=== PATIENT | male | born 1945 | race Caucasian/White ===

== ENCOUNTER 2017-02-19 21:59 | Observation (INO) ==
--- NOTE | 2017-02-19 22:23 | Emergency Department Note ---
Disposition Clinical Impression: Atrial fibrillation with rapid ventricular response Disposition: Admitted As Inpatient Condition: Good General Adult HPI - General Chief complaint: ED Arrhythmia/Palpitations Stated complaint: states is in afib Time Seen by Provider: 02/19/17 22:07 Source: patient Limitations: no limitations - History of Present Illness Pain Scale: 4 - Related Data Previous Rx's Medication Instructions Recorded Cyclobenzaprine [Flexeril] 10 mg PO TID #12 tablet 01/19/16 Hydrocodone/Acetaminophen [[place] 1 tab PO Q6H PRN #20 tab 01/19/16 5-325 Tablet] Allergies Allergy/AdvReac Type Severity Reaction Status Date / Time sedation AdvReac Nausea Uncoded 02/19/17 22:03 Past Medical History - Past Medical History Medical history: Reports: atrial fibrillation, COPD, hypertension Psychiatric history: Reports: no psych history - Social History Smoking Status: Never smoker Alcohol use: Reports: rarely Drug use: Reports: none Physical Exam - General Limitations: no limitations General appearance: alert Course Vital Signs Temperature 98.2 F 02/19/17 22:04 Pulse Rate 95 02/19/17 22:04 Respiratory Rate 20 02/19/17 22:04 Blood Pressure 187/90 02/19/17 22:04 O2 Sat by Pulse Oximetry 97 02/19/17 22:04 Temperature 98.3 F 02/20/17 01:40 Pulse Rate 103 02/20/17 01:40 Respiratory Rate 16 02/20/17 01:40 Blood Pressure 146/83 02/20/17 01:40 O2 Sat by Pulse Oximetry 95 02/20/17 01:40 Oxygen Delivery Oxygen Delivery Room Air Medical Decision Making - Lab Data Result diagrams: 02/20/17 04:44 02/20/17 04:44 Lab Results 02/19/17 02/19/17 02/19/17 Range/Units 22:54 22:54 22:54 WBC 8.2 (4.3-11.1) K/mcL RBC 4.80 (4.19-5.50) M/mcL Hgb 14.1 (12.9-16.9) g/dL Hct 42.7 (37.5-50.1) % MCV 89.0 (83.0-100.0) fL MCH 29.4 (28.0-33.3) pg MCHC 33.0 (31.6-35.5) g/dL RDW 13.7 (11.5-14.5) % Plt Count 222 (140-400) K/mcL MPV 10.3 (9.4-12.4) fL Immature Gran % 0.2 (0-4) % Seg Neutrophils % 67.7 % Lymphocytes % 19.0 % Monocytes % 9.9 % Eosinophils % 2.3 % Basophils % 0.9 % Neutrophils # 5.5 (1.6-8.9) K/mcL Lymphocytes # 1.6 (0.6-4.6) K/mcL Monocytes # 0.8 (0.0-1.3) K/mcL Eosinophils # 0.2 (0.0-0.6) K/mcL Basophils # 0.1 (0.0-0.2) K/mcL Sodium 140 (136-145) mEq/L Potassium 4.2 (3.5-4.5) mEq/L Chloride 106 (98-109) mEq/L Carbon Dioxide 25 (19-29) mEq/L BUN 25 (8-26) mg/dL Creatinine 1.45 H (0.72-1.25) mg/dL Est GFR ( Amer) 58 L (> 60) Est GFR (Non-Af Amer) 48 L (> 60) BUN/Creatinine Ratio 17 (6-26) Glucose 103 H (70-99) mg/dL Calculated Osmolality 295 (280-300) Calcium 9.2 (8.6-10.8) mg/dL Magnesium 2.0 (1.6-2.6) mg/dL Troponin I 0.01 (0-0.03) ng/mL Attestation Statement - Attestation Attestation: I examined this patient and my medical decision-making was reviewed with the [employer]ER/PA/Advanced Practice Nurse/Resident Physician. I agree with the documented findings, disposition and treatment plan as described except to the extent set forth below. Voon-by-gurr time provided Patient presents complaining of palpitations. History of intermittent atrial fibrillation. Symptoms for the past 10 hours. ECG reviewed by me. Patient evaluated in conjunction with the resident physician
[2017-02-19 23:01] LABS: Basophils # 0.1 K/mcL (0.0-0.2); Basophils % 0.9 %; Eosinophils # 0.2 K/mcL (0.0-0.6); Eosinophils % 2.3 %; Hematocrit 42.7 % (37.5-50.1); Hemoglobin 14.1 g/dL (12.9-16.9); Immature Granulocytes % 0.2 % (0-4); Lymphocytes # 1.6 K/mcL (0.6-4.6); Mean Corpuscular Hemoglobin 29.4 pg (28.0-33.3); Mean Platelet Volume 10.3 fL (9.4-12.4); Monocytes # 0.8 K/mcL (0.0-1.3); Monocytes % 9.9 %; Neutrophils # 5.5 K/mcL (1.6-8.9); Platelet Count 222 K/mcL (140-400); Red Cell Distribution Width 13.7 % (11.5-14.5); Segmented Neutrophils % 67.7 %
[2017-02-19 23:15] LABS: Calcium 9.2 mg/dL (8.6-10.8); Potassium 4.2 mEq/L (3.5-4.5)
[2017-02-19] MEDS ORDERED: 0.9 % Sodium Chloride 1,000 ML IVC ONE (23:39)
--- NOTE | 2017-02-19 23:45 | Emergency Department Note ---
Disposition Clinical Impression: Atrial fibrillation with rapid ventricular response Disposition: Admitted As Inpatient Condition: Good Referrals: Unassigned,Provider [Non-Partnered Physician] - Forms: ED Satisfaction Letter Arrhythmia/Palpitations HPI - General Chief Complaint: ED Arrhythmia/Palpitations Stated Complaint: states is in afib Time Seen by Provider: 02/19/17 22:07 Source: patient Limitations: no limitations Nursing Notes Reviewed: Yes Vital Signs Reviewed: Yes - History of Present Illness HPI Narrative: 71-year-old male presents to the emergency department with the chief complaint of atrial fibrillation. He reports a history of paroxysmal atrial fibrillation and he takes Xarelto and Sotolol he was diagnosed in 2012 and the last time he was in A. fib was 2014. He reports a fluttering sensation of the heart but not any pressure, pain and no associated nausea, vomiting or diaphoresis. He states he feels generally weak which occurs when he goes into A. fib. He denies any new lower extremity swelling. He denies any calf pain, history of DVT or PE. He denies any shortness of breath, lightheadedness or syncope. He denies any abdominal pain. - Related Data Previous Rx's Medication Instructions Recorded Cyclobenzaprine [Flexeril] 10 mg PO TID #12 tablet 01/19/16 Hydrocodone/Acetaminophen [[place] 1 tab PO Q6H PRN #20 tab 01/19/16 5-325 Tablet] Allergies Allergy/AdvReac Type Severity Reaction Status Date / Time sedation AdvReac Nausea Uncoded 02/19/17 22:03 All systems ED: reviewed and negative except as stated. Cardiovascular: Reports: palpitations. Denies: chest pain, dyspnea on exertion Respiratory: Denies: cough, dyspnea Gastrointestinal: Denies: abdominal pain, nausea, vomiting Musculoskeletal: Denies: back pain Neurological: Denies: headache, weakness, numbness Past Medical History - Past Medical History Medical history: Reports: atrial fibrillation, COPD, hypertension Psychiatric history: Reports: no psych history - Social History Smoking Status: Never smoker Alcohol use: Reports: rarely Drug use: Reports: none Physical Exam General: Appears well, alert and oriented x 3 Cardiovascular: Irregular but rate controlled, S1, S2. No murmurs, rubs or gallops. Respiratory: Breath sounds clear bilaterally. No wheezing, rales or rhonchi. No resp distress Abdomen: Soft, nontender. No guarding, rebound or rigidity. Eyes: conjunctiva clear HENT: No oral mucosal lesions. Moist mucous membranes Neuro: AAOx3, no motor or sensory deficits Musculoskeletal: No joint tenderness or swelling. BL LE non pitting edema involving the ankles BL, no asymmetry, tenderness or signs of DVT Skin: No lesions. No diaphoresis. Normal turgor. Normal color Psych: Appropriate - General Limitations: no limitations General appearance: alert Course Course Narrative: Presents with palpitations with history of A. fib. Initial EKG shows A. fib with a rate in the 90s. While in the emergency department his heart rate climbed into the 120s while at rest. We gave a liter of fluid and his heart rates down to about 115. Patient is early on Sotolol and I do not feel that adding a calcium channel j luis or BB at this time is necessary and patient will be stable until evaluated by the roof designer where he can be better evaluated and treated. I discussed this with the on-call hospitalist who accepts for admission Vital Signs Temperature 98.2 F 02/19/17 22:04 Pulse Rate 95 02/19/17 22:04 Respiratory Rate 20 02/19/17 22:04 Blood Pressure 187/90 02/19/17 22:04 O2 Sat by Pulse Oximetry 97 02/19/17 22:04 Temperature 98.2 F 02/19/17 22:04 Pulse Rate 114 02/20/17 00:16 Respiratory Rate 18 02/20/17 00:16 Blood Pressure 124/92 02/20/17 00:16 O2 Sat by Pulse Oximetry 94 02/20/17 00:16 Oxygen Delivery Oxygen Delivery Room Air Arrhythmia/Palpitations - Lab Data Result diagrams: 02/19/17 22:54 02/19/17 22:54 Lab Results 02/19/17 02/19/17 02/19/17 Range/Units 22:54 22:54 22:54 WBC 8.2 (4.3-11.1) K/mcL RBC 4.80 (4.19-5.50) M/mcL Hgb 14.1 (12.9-16.9) g/dL Hct 42.7 (37.5-50.1) % MCV 89.0 (83.0-100.0) fL MCH 29.4 (28.0-33.3) pg MCHC 33.0 (31.6-35.5) g/dL RDW 13.7 (11.5-14.5) % Plt Count 222 (140-400) K/mcL MPV 10.3 (9.4-12.4) fL Immature Gran % 0.2 (0-4) % Seg Neutrophils % 67.7 % Lymphocytes % 19.0 % Monocytes % 9.9 % Eosinophils % 2.3 % Basophils % 0.9 % Neutrophils # 5.5 (1.6-8.9) K/mcL Lymphocytes # 1.6 (0.6-4.6) K/mcL Monocytes # 0.8 (0.0-1.3) K/mcL Eosinophils # 0.2 (0.0-0.6) K/mcL Basophils # 0.1 (0.0-0.2) K/mcL Sodium 140 (136-145) mEq/L Potassium 4.2 (3.5-4.5) mEq/L Chloride 106 (98-109) mEq/L Carbon Dioxide 25 (19-29) mEq/L BUN 25 (8-26) mg/dL Creatinine 1.45 H (0.72-1.25) mg/dL Est GFR ( Amer) 58 L (> 60) Est GFR (Non-Af Amer) 48 L (> 60) BUN/Creatinine Ratio 17 (6-26) Glucose 103 H (70-99) mg/dL Calculated Osmolality 295 (280-300) Calcium 9.2 (8.6-10.8) mg/dL Magnesium 2.0 (1.6-2.6) mg/dL Troponin I 0.01 (0-0.03) ng/mL - EKG Data EKG results narrative: A fib with a rate of 99BPM. No ST elevation or depression. No acute ischemic changes.
[2017-02-20] MEDS ORDERED: Naloxone 0.4 MG/ML INJ IVP PRN (03:06)
[2017-02-20] MEDS ORDERED: Acetaminophen 325 MG TABLET PO PRN (03:06)
--- NOTE | 2017-02-20 04:24 | Internal Med History&Physical ---
Date of Encounter: 02/20/17 Time of Encounter: 02:45 Assessment and Plan (1) Atrial fibrillation with rapid ventricular response Current visit: Yes Status: Acute Patient has had ablation in the past and two episodes of DCCV in 2012 and 2014, since when he has been in sinus rhythm, per him. Noted to be on Sotalol and Xarelto for anticoagulation at home, will continue for now. His HR was noted to be elevated to 120s-130s in the ER, he received IV fluids after which his HR has been better controlled. Will use IV Cardizem as needed. Telemetry monitoring. Check 2D Echocardiogram. Cardiology consult for possible DCCV. No Pneumonia, check urine dipstick. (2) CKD (chronic kidney disease) Current visit: Yes Status: Chronic serum creatinine noted to be at baseline; avoid nephrotoxic agents. Outpatient Nephrology f/up. Qualifiers: Chronic kidney disease stage: stage 3 (moderate) Qualified Code(s): N18.3 - Chronic kidney disease, stage 3 (moderate) (3) SUMEET (obstructive sleep apnea) Current visit: Yes Status: Chronic continue nocturnal CPAP. Internal Medicine - H&P: HPI Chief complaint: Palpitations Admitted From: Emergency Dept Plans for Post Hospital Care: Home History of present illness: Mr. Sarkra is a 71 year old male with h/o- atrial fibrillation, s/p ablation and two episodes of cardioversion, presents with c/o- sudden onset of palpitations that started this afternoon. He describes a feeling of butterflies in his chest , associated with generalized weakness, myalgias, lethargy, like Flu. Denies dizziness, syncope, chest pain, dyspnea. He does have occasional leg swelling for which he takes Lasix as needed. He has not had these symptoms since his last cardioversion in 2014, and is concerned about recurrence of atrial fibrillation. No urinary symptoms, cough, fever, abdominal pain, nausea/ vomiting. Past Med Surg Social Fam HX - Past Medical History Medical history: atrial fibrillation, CHF, hyperlipidemia, renal disease Psychiatric history: no psych history - Past Surgical History Surgical History: cholecystectomy - Social History Smoking Status: Never smoker Alcohol use: rarely Drug use: none Occupational status: retired Current living situation: Home - Independent Activity Level: Independent ambulation Recent Out of Country Travel Within the Last 8 Weeks: No Exposure or Possible Exposure to Illness During Travel: No - Family History Mother Living Status: Cause of : Lung CA Hx Family Cardiac Disorders: Yes ([place]) Hx Family Cancer: Yes (Lung) Hx Family Neuromuscular Disorders: Yes (RA) Hx Family Neurologic Disorders: Yes (Epilepsy) Father Living Status: Age at : 79 Cause of : ID Hx Family Cardiac Disorders: Yes Internal Medicine - H&P: Meds Cyclobenzaprine [Flexeril] 10 mg PO TID #12 tablet 01/19/16 [Rx] Hydrocodone/Acetaminophen [[place] 5-325 Tablet] 1 tab PO Q6H PRN #20 tab [Rx] Allergies sedation Adverse Reaction (Uncoded 02/19/17 22:03) Nausea All Systems PM: A 10-system review of systems was performed and is negative for pertinent findings except as documented above in the HPI. - Constitutional Constitutional: fatigue, lethargy, malaise, weakness - EENT Eyes: no change in vision, no discharge, no pain, no photophobia Ears: no ear discharge, no ear pain, no tinnitus Nose, mouth and throat: no dysphagia, no nasal discharge, no neck pain, no sore throat - Cardiovascular Cardiovascular ROS IM: palpitations - Respiratory Respiratory: no cough, no dyspnea, no wheezing, no excessive phlegm production - Gastrointestinal Gastrointestinal: no abdominal pain, no diarrhea, no hematemesis, no hematochezia, no melena, no nausea, no vomiting - Musculoskeletal Musculoskeletal ROS IM: no numbness, no tingling - Integumentary Integumentary IM: no rash, no unusual bruising - Neurological Neurological ROS: no confusion, no convulsions, no focal weakness, no numbness, no tingling, no tremor(s) - Hematologic/Lymphatic Hematologic/Lymphatic: no easy bruising - Constitutional Vitals: Temp Pulse Resp BP Pulse Ox 98.3 F 103 16 146/83 95 02/20/17 01:40 02/20/17 01:40 02/20/17 01:40 02/20/17 01:40 02/20/17 01:40 General appearance: Present: A&O X 3, obese, answers questions appropriately - Respiratory Respiratory exam: Present: CTAB. Absent: accessory muscle use, rales, rhonchi, wheezes - Cardiovascular Cardiovascular exam: Present: irregular rhythm, +S1, +S2. Absent: diastolic murmur, gallop, rubs, systolic murmur - GI/Abdominal GI/Abdominal exam: Present: normal bowel sounds, soft (obese), no peritoneal signs. Absent: distended, tenderness - Extremities Exam Extremities exam: Present: full ROM, pedal edema (1+ pitting pedal edema B/L), warm, radial pulses palpable and symetrical. Absent: calf tenderness, cyanotic - Neurological Exam Neurological exam: Present: CN II-XII intact, oriented X3, no focal deficits. Absent: pronater drift, facial droop, speech deficit - Skin Skin exam: Present: dry, intact Internal Med - H&P Results - Labs CBC & Chem 7: 02/19/17 22:54 02/19/17 22:54 - EKG Data -: EKG Interpreted by Myself (atrial fibrillation at 96bpm)
[2017-02-20 05:53] LABS: Basophils # 0.1 K/mcL (0.0-0.2); Basophils % 0.8 %; Eosinophils # 0.2 K/mcL (0.0-0.6); Eosinophils % 2.3 %; Hematocrit 39.9 % (37.5-50.1); Hemoglobin 12.9 g/dL (12.9-16.9); Immature Granulocytes % 0.3 % (0-4); Lymphocytes # 1.4 K/mcL (0.6-4.6); Lymphocytes % 21.6 %; Mean Corpuscular HGB Conc 32.3 g/dL (31.6-35.5); Mean Corpuscular Hemoglobin 28.5 pg (28.0-33.3); Mean Corpuscular Volume 88.3 fL (83.0-100.0); Mean Platelet Volume 10.1 fL (9.4-12.4); Monocytes # 0.7 K/mcL (0.0-1.3); Monocytes % 10.8 %; Neutrophils # 4.2 K/mcL (1.6-8.9); Platelet Count 203 K/mcL (140-400); Red Blood Count 4.52 M/mcL (4.19-5.50); Red Cell Distribution Width 13.7 % (11.5-14.5); Segmented Neutrophils % 64.2 %
[2017-02-20 06:13] LABS: BUN/Creatinine Ratio 17 (6-26); Blood Urea Nitrogen 21 mg/dL (8-26); Calcium 8.5 mg/dL (8.6-10.8); Carbon Dioxide 23 mEq/L (19-29); Chloride 109 mEq/L (98-109); Glucose 89 mg/dL (70-99); Magnesium 2.1 mg/dL (1.6-2.6); Osmolality,Calculated 292 (280-300); Potassium 4.1 mEq/L (3.5-4.5); Sodium 140 mEq/L (136-145); eGFR For African Americans > 60 (> 60); eGFR For Non-African Americans 58 (> 60)
--- NOTE | 2017-02-20 11:13 | Cardiology Consult Note ---
Date of Encounter: 02/20/17 Time of Encounter: 11:09 Assessment and Plan (1) Atrial fibrillation with rapid ventricular response Current Visit: Yes Status: Acute Known hx of paroxysmal A-Fib/Flutter s/p ablation and two cardioversions in 2012 and 2014. Per pt, has maintained SR until yesterday when he felt he was out of rhythm with symptoms of fatigue and palpitations. K 4.1, Mag 2.1. Check TSH. Check echo. Last TTE 04/2013 EF 50-55%. BARBARA at that time EF 40-45%. Currently on Sotalol 80mg BID with no missed doses. Anticoagulated on Xarelto, missed dose yesterday evening on admission. Stage III CKD, but creatinine clearance remains >100. Will consult EP for further recommendations, anticipate increase of Sotalol to 120mg [id number] with daily EKGs. EKG on admission QTc 427ms. NPO after midnight for possible BARBARA/DCCV in AM. BARBARA warranted since he missed dose of Xarelto yesterday evening. Check echo to evaluate structure and function. (2) CKD (chronic kidney disease) Current Visit: Yes Status: Chronic Creatinine currently improved/at baseline. Creatinine Clearance remains >100, okay to continue and increase Sotalol. Monitor BMPs. Qualifiers: Chronic kidney disease stage: stage 3 (moderate) Qualified Code(s): N18.3 - Chronic kidney disease, stage 3 (moderate) (3) CAD (coronary artery disease) Current Visit: Yes Status: Acute LHC in 2012 showed moderate left main disease (40-50%). Mild CAD elsewhere. Pt previously biked without anginal symptoms. Reports not being as active recently, but denies chest pain or dyspnea. Check echo. 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 Add Plavix given left main disease. Plavix, BB, Statin. No ASA since he is on Xarelto and Plavix. Qualifiers: Coronary Disease-Associated Artery/Lesion type: [place] artery [place] vs. transplanted heart: [place] heart Associated angina: without angina Qualified Code(s): I25.10 - Atherosclerotic heart disease of [place] coronary artery without angina pectoris (4) SUMEET (obstructive sleep apnea) Current Visit: Yes Status: Chronic Continue CPAP. Discussion w patient/family: The assessment and plan as outlined above was discussed with the patient and/or family members who expressed understanding and agreement. All questions were answered. Thank you for involving us in the care of your patient. Please call with any questions. I will discuss all the above with Dr. Davidson and make changes as necessary. History of Present Illness Consult date: 02/20/17 Requesting physician: Smitha Caro Consult reason: A-Fib Chief complaint: fatigue, palpitations History of present illness: Mr. Sarkar is a 71 year old male with PMH of CAD, NICMP that since recovered, paroxysmal atrial fibrillation/flutter, s/p ablation and two cardioversions in 2012 and 2014 that presented with c/o sudden onset of palpitations that started yesterday afternoon. He describes a feeling of butterflies in his chest, associated with generalized weakness. He denies chest pain. He reports occasional lower extremity edema which he takes PRN Lasix for. 24 hour tele AVG HR 104, A-Fib. Prior CV testing: Echo 04/2013 EF 50-55%. BARBARA 04/2013 EF 40-45%. LHC 01/31/13 Moderate (40-50%) Left main disease. Mild disease otherwise. Past Med Surg Social Fam HX - Past Medical History Medical history: atrial fibrillation, COPD, coronary artery disease, hypertension Psychiatric history: no psych history - Past Surgical History Surgical History: cholecystectomy - Social History Smoking Status: Never smoker Alcohol use: rarely Drug use: none - Family History Mother Living Status: Cause of : Lung CA Hx Family Cardiac Disorders: Yes ([place]) Hx Family Cancer: Yes (Lung) Hx Family Neuromuscular Disorders: Yes (RA) Hx Family Neurologic Disorders: Yes (Epilepsy) Father Living Status: Age at : 79 Cause of : MT Hx Family Cardiac Disorders: Yes Medications and Allergies Atorvastatin [Lipitor] 10 mg PO HS 02/20/17 [History] Rivaroxaban [Xarelto] 10 mg PO 1700 02/20/17 [History] Sotalol [Betapace] 80 mg PO Q12HR 02/20/17 [History] Allergies sedation Adverse Reaction (Uncoded 02/19/17 22:03) Nausea All Systems Review: A 10-system review of systems was performed and is negative for pertinent findings except as documented above in the HPI. - Constitutional Constitutional: fatigue - Cardiovascular Cardiovascular: as per HPI, irregular heart rhythm, leg edema, palpitations Physical Examination Vital Signs, Last 4 Hours Temp Pulse Resp BP Pulse Ox 02/20/17 11:05 98.0 F 114 17 110/75 97 Vital Signs Temp Pulse Resp BP Pulse Ox 02/20/17 11:05 98.0 F 114 17 110/75 97 02/20/17 07:02 98.1 F 113 18 120/88 96 02/20/17 01:40 98.3 F 103 16 146/83 95 02/20/17 01:14 18 118/82 02/20/17 01:07 115 18 118/82 96 02/20/17 00:16 114 18 124/92 94 02/19/17 23:21 101 18 137/88 96 02/19/17 22:51 101 18 144/99 96 02/19/17 22:36 106 18 193/112 95 02/19/17 22:04 98.2 F 95 20 187/90 97 Intake and Output 02/19/17 02/20/17 02/20/17 23:59 07:59 15:59 Intake Total 1000 / 1000 360 / 360 Balance 1000 / 1000 360 / 360 Intake: IV Fluids 1000 / 1000 0.9 % Sodium Chloride 1, 1000 / 1000 000 ML @ 3750 mls/hr IVC .Q16M ONE Rx#:[id number] Oral 360 / 360 Other: Meal Breakfast Percent of Meal Consumed 100% Weight 145.15 kg 148.778 kg Patient Weight 02/20/17 23:59 Weight 148.778 kg General: Conversant, No Apparent Distress HEENT: Atraumatic, Normocephaly, Mucus Membranes Moist Neck: No JVD, Normal carotid pulses Cardiac: Other (irregularly irregular) Lungs: Normal Breath Sounds, No Wheeze, Rales, Rhonchi Neuro: Alert and responsive, No focal deficits noted Abdomen: Soft, Non-Tender Skin: No rashes noted on visualized skin Musculoskeletal: No Chest Wall Tenderness Extremities: No Clubbing, No Cyanosis, No Edema, Normal Pulses Results 02/20/17 04:44 02/20/17 04:44 Lab Results 02/20/17 02/20/17 04:44 04:44 WBC 6.5 Hgb 12.9 Hct 39.9 Plt Count 203 Sodium 140 Potassium 4.1 Chloride 109 Carbon Dioxide 23 BUN 21 Creatinine 1.24 Glucose 89 Calcium 8.5 L Magnesium 2.1 Short CBC 02/20/17 02/19/17 Range/Units 04:44 22:54 WBC 6.5 8.2 (4.3-11.1) K/mcL Hgb 12.9 14.1 (12.9-16.9) g/dL Hct 39.9 42.7 (37.5-50.1) % Plt Count 203 222 (140-400) K/mcL Neutrophils # 4.2 5.5 (1.6-8.9) K/mcL BMP 02/20/17 02/19/17 Range/Units 04:44 22:54 Sodium 140 140 (136-145) mEq/L Potassium 4.1 4.2 (3.5-4.5) mEq/L Chloride 109 106 (98-109) mEq/L Carbon Dioxide 23 25 (19-29) mEq/L BUN 21 25 (8-26) mg/dL Creatinine 1.24 1.45 H (0.72-1.25) mg/dL Glucose 89 103 H (70-99) mg/dL Calcium 8.5 L 9.2 (8.6-10.8) mg/dL Cardiac Enzymes 02/19/17 Range/Units 22:54 Troponin I 0.01 (0-0.03) ng/mL Impressions Chest X-Ray 02/19/17 22:38 IMPRESSION: No acute abnormality. D/ / Sagar Watkins MD / Sagar Watkins MD Interpreting Provider: Sagar Watkins MD Active Medications Acetaminophen (Tylenol) 650 mg PO Q6HR PRN PRN Reason: Mild Pain (1-3) Stop: 08/22/17 03:07 Clopidogrel Bisulfate (Plavix) 75 mg PO DAILY [facility] Stop: 08/22/17 11:16 Naloxone HCl (Narcan) 0.4 mg IVP Q2MIN PRN PRN Reason: Opioid Reversal Stop: 08/22/17 03:07 Omeprazole (Prilosec) 20 mg PO DAILY@0630 [facility] PRN Reason: Protocol Stop: 08/22/17 06:31 Last Admin: 02/20/17 06:00 Dose: Not Given Rivaroxaban (Xarelto) 20 mg PO 1700 [facility] Stop: 08/22/17 17:01 Sotalol HCl (Betapace) 40 mg PO ONCE ONE Stop: 02/20/17 11:07 Sotalol HCl (Betapace) 120 mg PO Q12HR [facility] Stop: 08/22/17 18:01 - Imaging and Cardiology Echo: report reviewed Cardiac cath: report reviewed - EKG Interpretation EKG results cardiology: personally reviewed, other (24 hour tele AVG HR 104, A- Fib.) Consult Discharge Plan - Plan Referrals: Gary Clifton DO [Primary Care Provider] - 03/02/17 9:30 am
[2017-02-20 11:21] LABS: Bilirubin,Urine Negative (Negative); Blood,Urine Negative (Negative); Clarity,Urine Clear (Clear); Color,Urine Yellow (Yellow); Glucose,Urine (UA) Normal (Normal); Ketones,Urine Negative (Negative); Leukocyte Esterase,Urine Negative (Negative); Nitrite,Urine Negative (Negative); Protein,Urine Negative (Neg-Trace); Specific Gravity,Urine 1.022 (1.010-1.025); Urobilinogen,Urine Normal (Normal)
--- NOTE | 2017-02-20 11:36 | Cardiology Consult Note ---
Date of Encounter: 02/20/17 Time of Encounter: 11:20 Assessment and Plan (1) Atrial fibrillation with rapid ventricular response Current Visit: Yes Status: Acute EP recommendations: Known hx of paroxysmal A-Fib/Flutter s/p ablation and two cardioversions in 2012 and 2014. ECG upon admission: AFib, HR 99 bpm, QT/QTc 371, 427 ms. Last TTE 04/2013 EF 50-55%. BARBARA at that time EF 40-45% Patient reports palpitations and fatigue that started yesterday evening, attributes to high level of stress at home/reports significant weight gain. Has been on sotalol 80 mg BID. Potassium & magnesium stable, TSH pending. TTE pending. Patient states he cannot confirm if he has been compliant with Xarelto in the past [address] Reynaldo Krueger, recommend increasing Sotalol to 120 mg BID; plan for BARBARA guided DCCV tomorrow if does not convert. NPO after MN. Obtain daily ECGs. Stage III CKD, but creatinine clearance remains >60 Discussion w patient/family: The assessment and plan as outlined above was discussed with the patient and/or family members who expressed understanding and agreement. All questions were answered. Thank you for involving us in the care of your patient. Please call with any questions. The patient was discussed and reviewed with Dr. Reynaldo Krueger. History of Present Illness Consult date: 02/20/17 Requesting physician: Angelo Mejia Consult reason: EP consult-AFib Chief complaint: Palpitations History of present illness: This document serves as an Electrophysiology Consult Note. Mr. Sarkar is a 71 year old male with PMH of CAD, recovered NICM, paroxysmal atrial fibrillation/flutter, s/p ablation and two cardioversions in 2012 and 2014 that presented to the ED with sudden onset of palpitations, fatigue that started yesterday afternoon. 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 Also reports significant weight gain due to "stress eating." He denies chest pain. He reports occasional lower extremity edema which he takes PRN Lasix for. 24 hour tele AVG HR 104, A-Fib. Prior CV testing: Echo 04/2013 EF 50-55%. BARBARA 04/2013 EF 40-45%. LHC 01/31/13 Moderate (40-50%) Left main disease. Mild disease otherwise. Past Med Surg Social Fam HX - Past Medical History Attestation: Yes The following information was validated with the patient. Source: patient Medical history: atrial fibrillation, COPD, coronary artery disease, hypertension Psychiatric history: no psych history - Past Surgical History Surgical History: cholecystectomy - Social History Smoking Status: Never smoker Alcohol use: rarely Drug use: none - Family History Mother Living Status: Cause of : Lung CA Hx Family Cardiac Disorders: Yes (PR) Hx Family Cancer: Yes (Lung) Hx Family Neuromuscular Disorders: Yes (RA) Hx Family Neurologic Disorders: Yes (Epilepsy) Father Living Status: Age at : 79 Cause of : PR Hx Family Cardiac Disorders: Yes Medications and Allergies Atorvastatin [Lipitor] 10 mg PO HS 02/20/17 [History] Rivaroxaban [Xarelto] 10 mg PO 1700 02/20/17 [History] Sotalol [Betapace] 80 mg PO Q12HR 02/20/17 [History] Allergies sedation Adverse Reaction (Uncoded 02/19/17 22:03) Nausea All Systems Review: A 10-system review of systems was performed and is negative for pertinent findings except as documented above in the HPI. - Cardiovascular Cardiovascular: as per HPI Physical Examination Vital Signs, Last 4 Hours Temp Pulse Resp BP Pulse Ox 02/20/17 11:05 98.0 F 114 17 110/75 97 General: Conversant, Other (obese) HEENT: Atraumatic, Normocephaly Cardiac: Other (irregularly irregular) Lungs: Normal Breath Sounds Neuro: Alert and responsive Abdomen: Soft Skin: No rashes noted on visualized skin Musculoskeletal: No Chest Wall Tenderness Extremities: No Edema, Normal Pulses Results 02/20/17 04:44 02/20/17 04:44 Lab Results 02/20/17 02/20/17 04:44 04:44 WBC 6.5 Hgb 12.9 Hct 39.9 Plt Count 203 Sodium 140 Potassium 4.1 Chloride 109 Carbon Dioxide 23 BUN 21 Creatinine 1.24 Glucose 89 Calcium 8.5 L Magnesium 2.1 Active Medications Acetaminophen (Tylenol) 650 mg PO Q6HR PRN PRN Reason: Mild Pain (1-3) Stop: 08/22/17 03:07 Clopidogrel Bisulfate (Plavix) 75 mg PO DAILY [facility] Stop: 08/22/17 11:16 Last Admin: 02/20/17 12:42 Dose: 75 mg Naloxone HCl (Narcan) 0.4 mg IVP Q2MIN PRN PRN Reason: Opioid Reversal Stop: 08/22/17 03:07 Omeprazole (Prilosec) 20 mg PO DAILY@0630 [facility] PRN Reason: Protocol Stop: 08/22/17 06:31 Last Admin: 02/20/17 06:00 Dose: Not Given Rivaroxaban (Xarelto) 20 mg PO 1700 [facility] Stop: 08/22/17 17:01 Sotalol HCl (Betapace) 120 mg PO Q12HR [facility] Stop: 08/22/17 18:01 - Imaging and Cardiology Echo: pending, report reviewed Cardiac cath: report reviewed Other Results: Tele review: avg OT=551, afib. - EKG Interpretation EKG results cardiology: personally reviewed Consult Discharge Plan - Plan Referrals: Gary Clifton DO [Primary Care Provider] - 03/02/17 9:30 am
--- NOTE | 2017-02-20 11:38 | ECHO - Doppler Report ---
Echocardiogram Name: Luisito Sarkar Date of Study: 02/20/2017 Date: 1945 Ht: 70.0 in Medical Record#: [id number] Age: 71 Wt: 328.0 lb Gender: Male BSA: 2.58 Order #: [id number] Location: [facility] Room #: 3B34 Reading Physician: Marlene Underwood DO Material Control Supervisor: Rylan Reynolds RN Ordering Physician: Ludy Caro MD Primary Physician: Valeriano Clifton DO Indications: Palpitations Impressions: LVEF 50%. Low normal LV systolic function. Indeterminate left ventricular diastolic function. Normal right ventricular size and function. Mild mitral regurgitation. No pulmonary hypertension. Left Ventricular Wall Motion: Rest Echo Findings All wall segments showed normal motion. Findings: Study Quality * Technically sub-optimal due to body habitus. ECG Findings * Atrial fibrillation. Left Ventricle * Indeterminate diastolic function. * Normal LV chamber size, wall thickness. * LVEF 50%. Left Atrium * Moderately dilated left atrium. Mitral Valve * Normal mitral valve structure. * No mitral stenosis. * Mild mitral regurgitation. Aortic Valve * No aortic regurgitation. * Trileaflet aortic valve. * Normal aortic valve structure. * No aortic stenosis. Tricuspid Valve * Tricuspid valve not well visualized. * Trace tricuspid regurgitation. * Estimated RA pressure is 3 mmHg. * Estimated RVSP is 33 mmHg. * No pulmonary hypertension. Pulmonic Valve * Pulmonic valve is not well visualized. * No pulmonic stenosis. * No pulmonic regurgitation. Pulmonary Artery * Pulmonary artery not well visualized. Right Ventricle * Normal right ventricular structure and function. Right Atrium * Normal right atrial size. Pericardium * There is no pericardial effusion present. Interatrial Septum * No evidence of PFO by color Doppler. IVC * Normal IVC dimensions and inspiratory collapse. Aorta * Normally sized aortic root. History Hypertension Hypercholesteremia Family History of CAD Congestive Heart Failure 04/08/2015 a Previous Echo was performed. Measurements: BP: 120/ 88 2D Normal Values RVIDd: 3.50 cm <2.7 cm IVSd: 1.20 cm 0.6 - 1.0 cm LVIDd: 4.60 cm 3.7 - 5.6 cm LVPWd: 1.20 cm 0.6 - 1.1 cm LVIDs: 3.40 cm 1.5 - 3.6 cm LA: 4.50 cm 2.0 - 4.0cm %FS: 26.10 cm >25 % LVOT Diam: 2.00 cm LA volume: 99 Mitral Valve Peak E:1.07 m/sec Peak E' Lat Tom:13.1 cm/s Peak E' Med Tom:7.9 cm/s E/E' Lat Ratio:8.2 E/E' Med Ratio:13.5 Tricuspid Valve TV Regurg Peak Grad: 30.00mmHg TV Regurg Peak Tom: 2.74m/sec Updated by Marlene Underwood on 02/20/2017 11:31:44 AM electronically signed on 02/20/2017 11:32:26 AM with status of Final Wall Motion [place]: 1=Normal, 2=Hypokinesis, 3=Akinesis, 4=Dyskinesis, 5=Aneurysmal, 6=Hyperkinetic, X=Not Visualized (Blank)=Missing
--- NOTE | 2017-02-20 16:11 | Event Note ---
Date of Encounter: 02/20/17 Time of Encounter: 14:00 Patient seen and examined. On examination, patient resting supine in bed reading a book. He currently complains of a mild headache. He denies shortness of breath. He states he continues to feel palpitations. Patient stated he has been ambulatory around the unit several times without difficulty. He states he is very upset regarding increased stressors at home and caring for his sister who has early onset of dementia. He states that stress has led him to gain a lot of weight he states he is getting to the point where he cannot handle the stress anymore. resident services manager brought on board for resources for possible respite care. He denies any friend or family support. He states he is used to biking 30 miles a day but has not been able to do this secondary to taking care of his sister. Chest x-ray negative. Urinalysis negative. Echocardiogram revealing ejection fraction of 50%. Patient euvolemic on examination. Morbid obesity noted. Heart rate slightly better controlled, now in the low 100s. We will trend. Cardiology on board. His sotalol dosage has been increased and plan is for a BARBARA guided DCCV tomorrow if he does not convert overnight. We will make him nothing by mouth after midnight. Continue his Xarelto. ITS Impressions Chest X-Ray 02/19/17 22:38 IMPRESSION: No acute abnormality. D/ / Sagar Watkins MD / Sagar Watkins MD Interpreting Provider: Sagar Watkins MD Echocardiogram impressions: LVEF 50%. Low normal LV systolic function. Indeterminate left ventricular diastolic function. Normal right ventricular size and function. Mild mitral regurgitation. No pulmonary hypertension.
--- NOTE | 2017-02-20 17:06 | Electrocardiograph Report ---
[address] [address] Test Date: 2017-02-19 Pat Name: Luisito Sarkar Department: 103 Room: 3B Gender: Filter Assembler: [id number] : 1945 Requested By: Jamie Barnes Order Number: [id number] Reading MD: Reynaldo Krueger Measurements Intervals [place] Rate: 99 P: [place]: 0 QRS: 19 QRSD: 98 T: 75 QT: 371 QTc: 427 Interpretive Statements ATRIAL FIBRILLATION MODERATE ST DEPRESSION Electronically Signed On 02-20-2017 17:04:43 EDT by Reynaldo Krueger
[2017-02-20] MEDS: *HR* Rivaroxaban 10 MG TABLET PO SCH (18:05)
[2017-02-21 05:39] LABS: BUN/Creatinine Ratio 16 (6-26); Blood Urea Nitrogen 20 mg/dL (8-26); Calcium 8.8 mg/dL (8.6-10.8); Carbon Dioxide 25 mEq/L (19-29); Chloride 108 mEq/L (98-109); Glucose 83 mg/dL (70-99); Osmolality,Calculated 292 (280-300); Sodium 140 mEq/L (136-145); eGFR For African Americans > 60 (> 60); eGFR For Non-African Americans 58 (> 60)
[2017-02-21] MEDS ORDERED: 0.9 % Sodium Chloride 500 ML IVC ONE ×2 (09:54→12:12)
[2017-02-21] MEDS ORDERED: Tetracaine/Benzocaine/Butamben 200MG/SPRAY (100SPY/BOT) MM ONE (09:54)
[2017-02-21] MEDS: *HR* FentaNYL (PF) 100 MCG/2 ML VIAL IVP PRN ×4 (10:30→10:48)
[2017-02-21] MEDS: *HR* Midazolam HCl 5 MG/5 ML VIAL IVP PRN ×4 (10:30→10:48)
[2017-02-21] MEDS ORDERED: Ondansetron 4 MG/2 ML VIAL ONE (11:58)
[2017-02-21] MEDS ORDERED: Ondansetron 4 MG/2 ML VIAL IVP PRN (12:13)
--- NOTE | 2017-02-21 13:14 | ECHO - Doppler Report ---
Cardioversion with BARBARA Name: Luisito Sarkar Date of Study: 02/21/2017 Date: 1945 Ht: 70.0in Medical Record#: [id number] Age: 71 Wt: 327.0lb Gender: Male BSA: 2.57 Order #: [id number] Location: [facility] Room #: [facility] Reading Physician: Marlene Underwood DO Manager Of Organizational Development: Yordy Robert RDCS Ordering Physician: Miracle Castellano CNP Primary Physician: Valeriano Clifton DO Indications: Arrhythmia Impressions: Successful DCCV of atrial fibrillation to normal sinus rhythm after 1 attempt. No patient complications. Medication Given: Time Medication Dose Units Route 10:30 Versed 2 mg IV 10:30 Fentanyl 25 mcg IV 10:35 Versed 2 mg IV 10:35 Fentanyl 25 mcg IV 10:40 Versed 2 mg IV 10:40 Fentanyl 25 mcg IV 10:48 Versed 2 mg IV 10:48 Fentanyl 25 mcg IV Findings: Study Quality * Technically adequate exam. ECG Findings * Atrial fib without ectopy Left Atrium * No thrombus present. * LA appendage is normal in appearance. * The LA appendage flow velocity is normal. Procedure Summary: After explaining the risks, benefits, and alternatives of the procedure to the patient in detail and answering all questions to satisfaction, an informed consent was obtained in writing. The patient was NPO for the six hours prior to the procedure. The patient denied dysphagia, odynophagia, and loose teeth. The patient was monitored with periodic automated blood pressures and continuous pulse oximetry and telemetry. Continuous oxygen was administered by MO. The patient was placed in the full upright position and the posterior oropharynx was anesthetized. The patient was then placed in the left lateral decubitus position, the neck was flexed, and a bite block was placed in the patient's mouth. IV sedation was administered. Once adequate sedation was achieved, a well-lubricated anteflexed multipoint intraesophageal echocardiographic probe was inserted into the midline posterior oropharynx. Gentle pressure was applied as the patient swallowed and the esophagus was intubated without difficulty. The scope was advanced to the mid esophagus without encountering resistance. Images were obtained from the mid and upper esophagus. Images from the gastric globe were not obtained. The patient tolerated the procedure well. After adequate sedation was achieved, cardioversion in the AP approach was performed using 150 Joules of biphasic energy. Normal sinus rhythm was restored after 1 attempt(s). The patient was monitored for the standard 30 minutes post procedure. Patient able to move all 4 extremities after completion of procedure. Complications: None History: Hypertension Hypercholesteremia Family History of CAD Previous Echo02/20/2017 BP 130 / 77 Updated by Marlene Underwood on 02/21/2017 1:08:23 PM electronically signed on 02/21/2017 1:10:41 PM with status of Final Wall Motion [place]: 1=Normal, 2=Hypokinesis, 3=Akinesis, 4=Dyskinesis, 5=Aneurysmal, 6=Hyperkinetic, X=Not Visualized (Blank)=Missing
--- NOTE | 2017-02-21 15:45 | Event Note ---
Date of Encounter: 02/21/17 Time of Encounter: 15:40 - Cardiology Event Note Seen and examined. s/p successful DCCV to NSR after 1 attempt. No thrombus identified. Post cardioversion patient was nauseated/weak--states he has felt this way after each DCCV. HR 50's SR with frequent PVCs, QTc remains less than 500 ms. s/p 2 doses of increased dose of Sotalol, 120 mg BID. Will receive third tonight. Primary service plans to keep overnight, will continue to monitor and re- evaluate in AM.
--- NOTE | 2017-02-21 17:35 | Electrocardiograph Report ---
[address] [address] Test Date: 2017-02-21 Pat Name: Luisito Sarkar Department: 101 Room: 3B Gender: M Venereal Disease Investigator: : 1945 Requested By: Angelo Mejia Order Number: [id number] Reading MD: Kaykay Krueger Measurements Intervals [place] Rate: 108 P: CT: 0 QRS: 12 QRSD: 114 T: 66 QT: 363 QTc: 427 Interpretive Statements Atrial fibrillation with rapid ventricular response MODERATE INTRAVENTRICULAR CONDUCTION DELAY ABNORMAL RHYTHM ECG Electronically Signed On 02-21-2017 17:33:50 EDT by Kaykay Krueger
[2017-02-21] MEDS: *HR* Rivaroxaban 10 MG TABLET PO SCH (17:57)
--- NOTE | 2017-02-21 18:40 | Internal Med Progress Note ---
Date of Encounter: 02/21/17 Time of Encounter: 12:00 - Assessment and plan (1) History of cardioversion Current Visit: Yes Status: Acute Assessment and plan: Patient had BARBARA today with cardioversion. Patient was converted to normal sinus after one attempt at 50 J. Patient has been normal sinus rhythm. Immediately following return to unit, he was bradycardic with a rate in the 40s. Hoop Punch And Coiler Operator Helper was aware of this prior to him being sent back to the floor. Patient had adverse reaction to sedation. Had nausea, vomiting. He was pale and clammy. His vital signs remained stable throughout. He was put on 2 L of oxygen and given a fluid bolus of 500 ml of normal saline and IV Zofran. Checked on him later and his pulse was in the 60s and remained regular. He was pink and warm and was not requiring oxygen. He was able to carry on conversation and was hungry and tolerated full liquids well. (2) Atrial fibrillation with rapid ventricular response Current Visit: Yes Status: Acute Assessment and plan: Patient presented to the emergency department last night with a 10 hour history of palpitations. He has a history of A. fib with ablation and BARABRA with cardioversion in the past. He has been in sinus rhythm and rate controlled on sotalol and was taking Xarelto for anticoagulation. On arrival to the emergency department his rate is in the 120s and 130s. He received IV fluids which did help control rate some. He was taken today for a BARBARA with cardioversion. See above. Patient has been normal sinus rhythm rate in the 60s. Cardiology we will revisit patient in the morning. Barring any changes in condition, patient will be ready to discharge in the morning. Continue telemetry Sotalol 120 mg po bid. patient started new dose last night. We will continue at home. (3) CKD (chronic kidney disease) Current Visit: Yes Status: Chronic Assessment and plan: BUN and creatinine are within normal limits. GFR is just slightly decreased. Avoid nephrotoxins Continue to monitor labs Qualifiers: Chronic kidney disease stage: stage 3 (moderate) Qualified Code(s): N18.3 - Chronic kidney disease, stage 3 (moderate) (4) SUMEET (obstructive sleep apnea) Current Visit: Yes Status: Chronic Assessment and plan: Chronic (5) CAD (coronary artery disease) Current Visit: Yes Status: Acute Assessment and plan: Patient on Cymbalta, aspirin, sotalol. Continue home medications Qualifiers: Coronary Disease-Associated Artery/Lesion type: [place] artery [place] vs. transplanted heart: [place] heart Associated angina: without angina Qualified Code(s): I25.10 - Atherosclerotic heart disease of [place] coronary artery without angina pectoris - Time Spent With Patient 25 - 35 minutes - Subjective Interval history: I did not see patient until he returned from his BARBARA today. When patient arrived back to room he was pale, clammy, dry heaving, and bradycardic with a rate in the mid to low 40s. His vitals were within normal limits. He has prior history of adverse reaction to sedation. Patient was placed on oxygen and given a IV fluid bolus and Zofran IV. I did go check on him later and he appeared to be much better. He was hungry and was given orange sherbet. He tolerated it well. Due to this reaction to sedation, I decided to keep him another night. He did not appear to be well enough to go home and care for his ill sister. She is being cared for at home by other family members and friends. Patient did not seem to be upset that he is going to stay another night. When I went back to check on his rate was around 60. He was pink and dry and able to speak. Nausea had resolved. I did speak with cardiology LAND LEASING EXAMINER about his condition and they will check on him again tomorrow. - Constitutional Vitals: Temp Pulse Resp BP Pulse Ox 97.9 F 54 16 125/72 97 02/21/17 15:43 02/21/17 15:43 02/21/17 15:43 02/21/17 15:43 02/21/17 15:43 General appearance: Present: A&O X 3, morbidly obese, pleasant, obese, answers questions appropriately - Head Head exam: Present: normal inspection - Eye Eye exam: Present: normal appearance, conjuntiva pink - ENT ENT exam: Present: mucous membranes moist, normal exam, normal oropharynx - Neck Neck exam general surgery: Present: normal inspection. Absent: lymphadenopathy , tenderness - Respiratory Respiratory exam: Present: CTAB. Absent: chest wall tenderness, decreased breath sounds, respiratory distress, stridor, wheezes - Cardiovascular Cardiovascular exam: Present: bradycardia, RRR, +S1, +S2. Absent: diastolic murmur, systolic murmur - GI/Abdominal GI/Abdominal exam: Present: distended, normal bowel sounds, soft. Absent: firm , hepatomegaly, tenderness - Neurological Exam Neurological exam: Present: alert, oriented X3, no focal deficits, strengths equal and symetr throughout. Absent: facial droop, speech deficit Internal Medicine: Result - Labs CBC & Chem 7: 02/20/17 04:44 02/21/17 04:44 Labs: BMP 02/21/17 04:44 Sodium 140 Potassium 4.0 Chloride 108 Carbon Dioxide 25 BUN 20 Creatinine 1.24 Glucose 83 Calcium 8.8 Consult Discharge Plan - Plan Referrals: Gary Clifton DO [Primary Care Provider] - 03/02/17 9:30 am
[2017-02-22 07:10] VITALS: BP 147/79
[2017-02-22] MEDS ORDERED: DiphenhydraMINE CREAM 28.4 GM TUBE TP PRN (09:14)
--- NOTE | 2017-02-22 09:14 | Discharge Summary ---
Date of Encounter: 02/22/17 Time of Encounter: 07:30 - Discharge Diagnosis (1) History of cardioversion Priority: Secondary Status: Chronic Comments: Cardioverted yesterday. Converted from A. fib after one attempt at 150 J. Today patient has what appears to be dermatitis from the defibrillator pads used. There does not appear to be any burn per se, however patient does state that the area itches. I have given him Benadryl topical cream. (2) Atrial fibrillation with rapid ventricular response Priority: Primary Status: Acute Comments: Patient was admitted to the emergency department with an approximately 10 hour history of palpitations. He has a history of A. fib with ablation GAEL, also cardioversion in the past. He said that he felt palpitations and new that he was in A. fib again. He had been in sinus rhythm and rate controlled on sotalol 80 mg and has been taking Zaroxolyn for anticoagulation. When he arrived in the emergency department his rate was in the 120s and 130s. It was partially controlled with IV fluids which did help control the rhythm. Patient had a GAEL and cardioversion yesterday. He converted successfully with one attempt at 150 J. Patient does appear to still be in normal sinus rhythm with occasional PVCs. He denies any chest pain, shortness of breath, dizziness, nausea or vomiting. He states that he feels much better and is very anxious to get home. (3) CKD (chronic kidney disease) Priority: Secondary Status: Chronic Comments: BUN and creatinine are within normal limits again today. GFR is just slightly decreased at 58. It has maintained since yesterday and improved since arrival when it was 48. Qualifiers: Chronic kidney disease stage: stage 3 (moderate) Qualified Code(s): N18.3 - Chronic kidney disease, stage 3 (moderate) (4) SUMEET (obstructive sleep apnea) Priority: Secondary Status: Chronic Comments: Chronic. (5) CAD (coronary artery disease) Priority: Secondary Status: Chronic Comments: Patient taking Xarelto, Plavix, Lipitor. Continue home medications. Qualifiers: Coronary Disease-Associated Artery/Lesion type: [place] artery [place] vs. transplanted heart: [place] heart Associated angina: without angina Qualified Code(s): I25.10 - Atherosclerotic heart disease of [place] coronary artery without angina pectoris - Discharge Medications Prescriptions: Sotalol [Betapace] 120 mg PO Q12HR #60 tablet Home Medications: Atorvastatin [Lipitor] 10 mg PO HS 02/20/17 [History] Rivaroxaban [Xarelto] 10 mg PO 1700 02/20/17 [History] Clopidogrel [Plavix] 75 mg PO DAILY tablet 02/22/17 [Rx] DiphenhydraMINE [Benadryl] 1 appl TP TID PRN #0 tube 02/22/17 [Rx] Sotalol [Betapace] 120 mg PO Q12HR #60 tablet 02/22/17 [Rx] Allergies/Adverse Reactions: Allergies sedation Adverse Reaction (Uncoded 02/19/17 22:03) Nausea Procedures/tests Complete & Pending: Procedures Performed prior 72 hours Category Date Time Status EKG [ECG 12 lead ECG] [ECG] AM 0600 Y 02/21/17 06:00 Completed EKG [ECG 12 lead ECG] [ECG] AM 0600 Y 02/22/17 06:00 Completed EV echocardiogram Routine Y 02/20/17 03:08 Completed EV gael guided cardioversion Routine Y 02/21/17 08:09 Completed Date of admission: 02/20/17 01:07 Primary care physician: Gary Clifton, Consults: 02/20/17 03:07 Consult to Cardiology [CONS] Routine Comment: Consulting Provider: Kasie Watson Reason for Consult: New [place] since [facility] in 2014 Call Completed: No 02/20/17 09:52 Consult to Flotation Tank Operator [CONS] Routine Reason for SW Consult: patient has verbalized stress d/t being the primary resistance brazer of his sister that has a dx of Alzheimers. He would like resources on respite care 02/20/17 14:42 Consult to Electrophysiology (EP) [CONS] Routine Consulting Provider: Dottie Watson Reason for Consult: A-Fib Call Completed: Yes Discharging clinician: Gemma Hernández Anticipated date of discharge: 02/22/17 - Patient Status Disposition: Home, Self-Care Functional capacity at discharge: independent ambulation Overall status at discharge: patient is back to baseline - Discharge Instructions Follow Up With: Gary Clifton DO [Primary Care Provider] - 03/02/17 9:30 am Additional Instructions: Please follow up with cardiology as scheduled. Please follow up with your PCP within the next week or 10 days. Resume your normal medications. Start Sotalol 120mg twice daily today . Return to the ER as needed for any other problems or concerns, or if you have chest pain or you feel as if you're in a-fib again. - Diet and Activity Activity: resume usual activities as tolerated Diet: low fat, low cholesterol Hospital course: Mr. Sarkar is a 71 year old male with past medical history of chronic kidney disease, obstructive sleep apnea, coronary artery disease, A. fib with anticoagulation and rate control with beta j luis. Patient was admitted to the emergency department 2 nights ago after an approximately 10 hour history of palpitations. Patient states that he has been in A. fib before and felt that he was again. He denied any chest pain or shortness of breath, states that he only felt palpitations. In the emergency room his rate was 120s to 130s, it was slowed with IV fluid bolus. He was admitted to the observation unit. On February 20 he had an echocardiogram showed LVEF of 50%, low normal systolic function indeterminate diastolic function, mild mitral regurgitation and no pulmonary hypertension. Sotalol dose was increased from 80 mg twice a day to 120 mg twice a day. He had a GAEL with cardioversion yesterday and converted to normal sinus with one attempt at 150 J. When patient returned from procedure, he was bradycardic with rate in the low to mid 40s, pale and clammy, decreased level of responsiveness, nausea and dry heaving and diarrhea. Patient was given a 500 mL fluid bolus and was placed on oxygen. His saturations remained 97-100% throughout, even prior to oxygen. He was given Zofran IV. I saw him again a couple of hours after this, he still appeared to be drowsy and and weak. I talked with him about staying again due to this reaction that I believe is most likely from the sedation for the procedure. He was agreeable. He did well overnight and is still normal sinus rhythm with rate in the 60s. He has been up and ambulatory in the unit since the beginning of his stay. He says that he feels well, labs are within normal limits, vital signs are stable. Cardiology did see him again this morning and he will follow-up in the office at their discretion. Patient is stable and appropriate for discharge. - Time Spent with Patient Total time spent providing and/or coordinating discharge services: Less than 30 minutes - Constitutional Vitals: Temp Pulse Resp BP Pulse Ox 97.8 F 65 18 147/79 94 02/22/17 07:09 02/22/17 07:09 02/22/17 07:09 02/22/17 07:09 02/22/17 07:09 General appearance: Present: A&O X 3, morbidly obese, pleasant, no acute distress, obese, answers questions appropriately - Head Head exam: Present: normal inspection - Eye Eye exam: Present: normal appearance, nystagmus, conjuntiva pink - ENT ENT exam: Present: mucous membranes moist, normal exam, normal external ear exam - Neck Neck exam general surgery: Present: normal inspection. Absent: lymphadenopathy , tenderness - Respiratory Respiratory exam: Present: CTAB. Absent: decreased breath sounds, respiratory distress, rhonchi, stridor, wheezes - Cardiovascular Cardiovascular exam: Present: RRR, +S1, +S2. Absent: diastolic murmur, systolic murmur - GI/Abdominal GI/Abdominal exam: Present: distended, hyperactive bowel sounds, soft. Absent: hepatomegaly, mass, tenderness - Extremities Exam Extremities exam: Present: normal inspection, warm, radial pulses palpable and symetrical. Absent: pedal edema, tenderness - Neurological Exam Neurological exam: Present: alert, normal gait, oriented X3, no focal deficits, strengths equal and symetr throughout. Absent: facial droop, speech deficit
--- NOTE | 2017-02-22 09:33 | Cardiology Progress Note ---
Date of Encounter: 02/22/17 Time of Encounter: 09:31 Assessment and Plan (1) Atrial fibrillation with rapid ventricular response Current Visit: Yes Status: Acute s/p successful DCCV to NSR after 1 attempt. No thrombus identified. Post cardioversion patient was nauseated/weak--states he has felt this way after each DCCV. Symptoms now resolved. HR 50's-70s SR with frequent PVCs, QTc remains less than 500 ms. 24 hour tele AVG HR 60. s/p 5 doses of increased dose of Sotalol, 120 mg BID. Echo shows EF preserved 50%. Pt reports feeling much better now in SR. Cardiology signing off. Reconsult PRN. Follow-up as outpt. (2) CAD (coronary artery disease) Current Visit: Yes Status: Chronic LHC in 2012 showed moderate left main disease (40-50%). Mild CAD elsewhere. Pt previously biked without anginal symptoms. Reports not being as active recently, but denies chest pain or dyspnea. 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 Echo shows EF remains preserved at 50%. Added Plavix given left main disease. Plavix, BB, Statin. No ASA since he is on Xarelto and Plavix. Qualifiers: Coronary Disease-Associated Artery/Lesion type: [place] artery [place] vs. transplanted heart: [place] heart Associated angina: without angina Qualified Code(s): I25.10 - Atherosclerotic heart disease of [place] coronary artery without angina pectoris (3) CKD (chronic kidney disease) Current Visit: Yes Status: Chronic Qualifiers: Chronic kidney disease stage: stage 3 (moderate) Qualified Code(s): N18.3 - Chronic kidney disease, stage 3 (moderate) (4) SUMEET (obstructive sleep apnea) Current Visit: Yes Status: Chronic Continue CPAP. Discussion w patient/family: The assessment and plan as outlined above was discussed with the patient and/or family members who expressed understanding and agreement. All questions were answered. Thank you for involving us in the care of your patient. Please call with any questions. I will discuss all the above with Dr. Davidson and make changes as necessary. Subjective Principal diagnosis: PAF Interval history: S/P Successful BARBARA/DCCV yesterday. Pt maintains SR with PACs noted. 24 hour tele AVG HR 60. QTc remains <500ms. Pt has received 4 doses of increased Sotalol dose 120mg BID. Pt reports feeling much better now that he is back in SR. Pt does report tingling feeling where back DCCV pad was. Objective Vital Signs, Last 4 Hours Temp Pulse Resp BP Pulse Ox 02/22/17 07:09 97.8 F 65 18 147/79 94 Vital Signs Temp Pulse Resp BP Pulse Ox 02/22/17 07:09 97.8 F 65 18 147/79 94 02/22/17 03:04 97.7 F 56 18 138/51 97 02/21/17 22:43 98.2 F 62 18 121/77 94 02/21/17 18:55 97.8 F 72 18 139/75 95 02/21/17 15:43 97.9 F 54 16 125/72 97 02/21/17 15:13 14 133/84 53 02/21/17 13:15 54 16 132/84 100 02/21/17 12:28 97.8 F 43 14 143/91 98 02/21/17 11:50 97.5 F L 48 20 128/76 96 02/21/17 09:56 97.6 F 108 10 135/118 97 Intake and Output 02/21/17 02/22/17 02/22/17 23:59 07:59 15:59 Intake Total 480 / 480 360 / 360 Balance 480 / 480 360 / 360 Intake: Oral 480 / 480 360 / 360 Other: Meal Breakfast Percent of Meal Consumed 100% General: Conversant, No Apparent Distress HEENT: Atraumatic, Normocephaly, Mucus Membranes Moist Neck: No JVD, Normal carotid pulses Cardiac: Reg Rate and Rhythm, Normal S1 and S2, No Murmur Lungs: Normal Breath Sounds, No Wheeze, Rales, Rhonchi Neuro: Alert and responsive, No focal deficits noted Abdomen: Soft, Non-Tender Skin: No rashes noted on visualized skin Musculoskeletal: No Chest Wall Tenderness Extremities: No Clubbing, No Cyanosis, No Edema, Normal Pulses Results 02/20/17 04:44 02/21/17 04:44 Active Medications Acetaminophen (Tylenol) 650 mg PO Q6HR PRN PRN Reason: Mild Pain (1-3) Stop: 08/22/17 03:07 Clopidogrel Bisulfate (Plavix) 75 mg PO DAILY XU Stop: 08/22/17 11:16 Last Admin: 02/22/17 08:34 Dose: 75 mg Diphenhydramine HCl (Benadryl) 1 appl TP TID PRN PRN Reason: Itching Stop: 08/24/17 09:15 Naloxone HCl (Narcan) 0.4 mg IVP Q2MIN PRN PRN Reason: Opioid Reversal Stop: 08/22/17 03:07 Omeprazole (Prilosec) 20 mg PO DAILY@0630 XU PRN Reason: Protocol Stop: 08/22/17 06:31 Last Admin: 02/22/17 06:31 Dose: 20 mg Ondansetron HCl (Zofran) 4 mg IVP Q6HR PRN; Protocol PRN Reason: Nausea Stop: 08/23/17 12:14 Rivaroxaban (Xarelto) 20 mg PO 1700 XU Stop: 08/22/17 17:01 Last Admin: 02/21/17 17:57 Dose: 20 mg Sotalol HCl (Betapace) 120 mg PO Q12HR XU Stop: 08/22/17 18:01 Last Admin: 02/22/17 06:31 Dose: 120 mg - Imaging and Cardiology Echo: report reviewed - EKG Interpretation EKG results cardiology: other (24 hour tele AVG HR 60, SR with PACs) Consult Discharge Plan - Plan Instructions: Sotalol (By mouth), Atrial Fibrillation (DC) Additional Instructions: Please follow up with cardiology as scheduled. Please follow up with your PCP within the next week or 10 days. Resume your normal medications. Start Sotalol 120mg twice daily today . Return to the ER as needed for any other problems or concerns, or if you have chest pain or you feel as if you're in a-fib again. Referrals: Gary Clifton DO [Primary Care Provider] - 03/02/17 9:30 am Prescriptions: Sotalol [Betapace] 120 mg PO Q12HR #60 tablet
--- NOTE | 2017-02-22 11:02 | Electrocardiograph Report ---
[address] [address] Test Date: 2017-02-21 Pat Name: Luisito Sarkar Department: 113 Room: 3B Gender: M Rn Ed: TM : 1945 Requested By: Angelo Mejia Order Number: [id number] Reading MD: Kaykay Krueger Measurements Intervals [place] Rate: 114 P: 250 OK: 233 QRS: -14 QRSD: 96 T: 48 QT: 356 QTc: 424 Interpretive Statements SINUS TACHYCARDIA WITH FIRST DEGREE AV BLOCK Electronically Signed On 02-22-2017 11:00:27 EDT by Kaykay Krueger
--- NOTE | 2017-02-22 11:15 | Electrocardiograph Report ---
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
--- NOTE | 2017-02-22 16:38 | Electrocardiograph Report ---
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
--- NOTE | 2017-02-23 12:55 | Electrocardiograph Report ---
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
== END 2017-02-22 10:43 | disposition home or self-care (01) ==
LOC: EMEROO 21:59 → 3BNU 21:59
PROVIDERS: ADMIT Internal Medicine; ATTEND Nurse Practitioner Family

== ENCOUNTER 2017-07-11 04:12 | Inpatient (IN) ==
[2017-07-11 04:55] LABS: Basophils # 0.1 K/mcL (0.0-0.2); Basophils % 1.1 %; Eosinophils # 0.2 K/mcL (0.0-0.6); Eosinophils % 3.5 %; Immature Granulocytes % 0.2 % (0-4); Lymphocytes # 1.5 K/mcL (0.6-4.6); Lymphocytes % 22.6 %; Mean Corpuscular HGB Conc 32.6 g/dL (31.6-35.5); Monocytes # 0.6 K/mcL (0.0-1.3); Monocytes % 9.7 %; Neutrophils # 4.1 K/mcL (1.6-8.9); Platelet Count 219 K/mcL (140-400); Red Blood Count 4.83 M/mcL (4.19-5.50); Red Cell Distribution Width 14.1 % (11.5-14.5); Segmented Neutrophils % 62.9 %
[2017-07-11 04:56] LABS: INR 1.5; Prothrombin Time 16.7 Seconds (9.4-12.1)
[2017-07-11 04:58] LABS: Activated Partial Thrombo Time 35.3 Seconds (26.0-36.0)
[2017-07-11 05:06] LABS: BUN/Creatinine Ratio 16 (6-26); Blood Urea Nitrogen 21 mg/dL (8-26); Calcium 9.3 mg/dL (8.6-10.8); Carbon Dioxide 20 mEq/L (19-29); Chloride 109 mEq/L (98-109); Glucose 105 mg/dL (70-99); Osmolality,Calculated 295 (280-300); Potassium 3.6 mEq/L (3.5-4.5); Sodium 141 mEq/L (136-145); eGFR For African Americans > 60 (> 60); eGFR For Non-African Americans 54 (> 60)
[2017-07-11] MEDS ORDERED: 0.9 % Sodium Chloride 500 ML ONE (05:21)
[2017-07-11 05:28] LABS: Thyroid Stimulating Hormone 2.714 mcIU/mL (0.350-4.840)
[2017-07-11] MEDS ORDERED: 0.9 % Sodium Chloride 500 ML IVC SCH (05:30)
--- NOTE | 2017-07-11 05:32 | Emergency Department Note ---
Disposition Clinical Impression: Atrial fibrillation Qualifiers: Atrial fibrillation type: paroxysmal Qualified Code(s): I48.0 - Paroxysmal atrial fibrillation Disposition: Admitted As Inpatient Condition: Good Referrals: Gary Clifton DO [Primary Care Provider] - Arrhythmia/Palpitations HPI - General Chief Complaint: ED Arrhythmia/Palpitations Stated Complaint: Palpatation Time Seen by Provider: 07/11/17 04:19 Source: patient Limitations: no limitations Nursing Notes Reviewed: Yes Vital Signs Reviewed: Yes - History of Present Illness HPI Narrative: 72-year-old male presents with concerns of palpitations. Patient states he has a history of paroxysmal A. fib. He is currently taking Xarelto. He was previously on sotalol however he became bradycardic and was taken off within the past 3 days. Patient denies fever, chills, diarrhea, vomiting, chest pain. He states he feels a fluttering in his chest associated with the atrial fibrillation. He has been unable to sleep tonight secondary to his symptoms. No recent trauma. - Related Data Home Medications Medication Instructions Recorded Confirmed Atorvastatin [Lipitor] 10 mg PO HS 02/20/17 02/20/17 Rivaroxaban [Xarelto] 10 mg PO 1700 02/20/17 02/20/17 Previous Rx's Medication Instructions Recorded Clopidogrel [Plavix] 75 mg PO DAILY tablet 02/22/17 DiphenhydraMINE [Benadryl] 1 appl TP TID PRN #0 tube 02/22/17 Sotalol [Betapace] 120 mg PO Q12HR #60 tablet 02/22/17 Allergies Allergy/AdvReac Type Severity Reaction Status Date / Time sedation AdvReac Nausea Uncoded 07/11/17 04:14 All systems ED: reviewed and negative except as stated. Review of Systems: As Per HPI Past Medical History - Past Medical History Attestation: Yes The following information was validated with the patient. Source: patient Medical history: Reports: atrial fibrillation, COPD, coronary artery disease, hyperlipidemia, hypertension Surgical history: Reports: cholecystectomy Psychiatric history: Reports: no psych history - Social History Smoking Status: Never smoker Smokeless Tobacco Status: No Alcohol use: Reports: rarely Drug use: Reports: none Physical Exam General: Alert and in no acute distress Skin: Warm, dry, intact Head: Normocephalic and atraumatic Neck: Supple, trachea midline and no tenderness Cardiovascular: Irregularly irregular rhythm with normal perfusion Respiratory: CTAB, no wheezing, cough, or respiratory distress Musculoskeletal: Normal strength, no tenderness, swelling or deformity GI: Soft, nontender, nondistended. Bowel sounds present Neuro: A&O to person, place, time and situation. No focal deficits noted on exam Psychiatric: cooperative and appropriate mood and affect. - General Limitations: no limitations General appearance: alert, in no apparent distress Course Vital Signs Temperature 98.1 F 07/11/17 04:14 Pulse Rate 140 07/11/17 04:14 Respiratory Rate 20 07/11/17 04:14 Blood Pressure 146/99 07/11/17 04:14 O2 Sat by Pulse Oximetry 97 07/11/17 04:14 Temperature 98.1 F 07/11/17 04:14 Pulse Rate 121 07/11/17 05:27 Respiratory Rate 16 07/11/17 05:27 Blood Pressure 112/91 07/11/17 05:27 O2 Sat by Pulse Oximetry 95 07/11/17 05:27 Oxygen Delivery Oxygen Delivery Room Air Arrhythmia/Palpitations - Medical Records Medical records reviewed: Yes I reviewed the patient's medical records. - Lab Data Lab results reviewed: Yes I reviewed the patient's lab results. Result diagrams: 07/11/17 04:38 07/11/17 04:38 Lab Results 07/11/17 07/11/17 07/11/17 Range/Units 04:38 04:38 04:38 WBC 6.5 (4.3-11.1) K/mcL RBC 4.83 (4.19-5.50) M/mcL Hgb 14.0 (12.9-16.9) g/dL Hct 43.0 (37.5-50.1) % MCV 89.0 (83.0-100.0) fL MCH 29.0 (28.0-33.3) pg MCHC 32.6 (31.6-35.5) g/dL RDW 14.1 (11.5-14.5) % Plt Count 219 (140-400) K/mcL MPV 10.0 (9.4-12.4) fL Immature Gran % 0.2 (0-4) % Seg Neutrophils % 62.9 % Lymphocytes % 22.6 % Monocytes % 9.7 % Eosinophils % 3.5 % Basophils % 1.1 % Neutrophils # 4.1 (1.6-8.9) K/mcL Lymphocytes # 1.5 (0.6-4.6) K/mcL Monocytes # 0.6 (0.0-1.3) K/mcL Eosinophils # 0.2 (0.0-0.6) K/mcL Basophils # 0.1 (0.0-0.2) K/mcL PT 16.7 H (9.4-12.1) Seconds INR 1.5 APTT 35.3 (26.0-36.0) Seconds Sodium 141 (136-145) mEq/L Potassium 3.6 (3.5-4.5) mEq/L Chloride 109 (98-109) mEq/L Carbon Dioxide 20 (19-29) mEq/L BUN 21 (8-26) mg/dL Creatinine 1.32 H (0.72-1.25) mg/dL Est GFR ( Amer) > 60 (> 60) Est GFR (Non-Af Amer) 54 L (> 60) BUN/Creatinine Ratio 16 (6-26) Glucose 105 H (70-99) mg/dL Calculated Osmolality 295 (280-300) Calcium 9.3 (8.6-10.8) mg/dL Troponin I (0-0.03) ng/mL TSH 2.714 (0.350-4.840) mcIU/mL 07/11/17 Range/Units 04:38 WBC (4.3-11.1) K/mcL RBC (4.19-5.50) M/mcL Hgb (12.9-16.9) g/dL Hct (37.5-50.1) % MCV (83.0-100.0) fL MCH (28.0-33.3) pg MCHC (31.6-35.5) g/dL RDW (11.5-14.5) % Plt Count (140-400) K/mcL MPV (9.4-12.4) fL Immature Gran % (0-4) % Seg Neutrophils % % Lymphocytes % % Monocytes % % Eosinophils % % Basophils % % Neutrophils # (1.6-8.9) K/mcL Lymphocytes # (0.6-4.6) K/mcL Monocytes # (0.0-1.3) K/mcL Eosinophils # (0.0-0.6) K/mcL Basophils # (0.0-0.2) K/mcL PT (9.4-12.1) Seconds INR APTT (26.0-36.0) Seconds Sodium (136-145) mEq/L Potassium (3.5-4.5) mEq/L Chloride (98-109) mEq/L Carbon Dioxide (19-29) mEq/L BUN (8-26) mg/dL Creatinine (0.72-1.25) mg/dL Est GFR ( Amer) (> 60) Est GFR (Non-Af Amer) (> 60) BUN/Creatinine Ratio (6-26) Glucose (70-99) mg/dL Calculated Osmolality (280-300) Calcium (8.6-10.8) mg/dL Troponin I 0.01 (0-0.03) ng/mL TSH (0.350-4.840) mcIU/mL - Radiology Data Radiology results reviewed: Yes I reviewed the patient's radiology results. - EKG Data EKG attestation: Yes I reviewed and interpreted this EKG. EKG results narrative: 133 atrial fibrillation with RVR with ST depressions in V3, V4 Critical Care Time Critical Care Time: Yes Total Critical Care Time: 35 Attestation: The high probability of a clinically significant, sudden or life threatening deterioration of the cardiovascular system(s) required my full and direct attention, intervention and personal management. The aggregate critical care time was 35 minutes. This time is in addition to time spent performing reported procedures but includes the following: x Data Review and interpretation x Patient assessment and monitoring of vital signs x Documentation x Medication orders and management
[2017-07-11] MEDS ORDERED: *HR* HYDROcodone/Acet 5/325 mg TABLET PO PRN (05:55)
[2017-07-11] MEDS ORDERED: *HR* Promethazine 25 MG/ML VIAL IVP PRN (05:55)
[2017-07-11] MEDS ORDERED: *HR* Morphine 2 MG/ML SYRINGE IVP PRN (05:55)
[2017-07-11] MEDS ORDERED: Naloxone 0.4 MG/ML INJ IVP PRN (05:55)
[2017-07-11] MEDS ORDERED: Ondansetron 4 MG/2 ML VIAL IVP PRN (05:55)
[2017-07-11] MEDS ORDERED: Acetaminophen 325 MG TABLET PO PRN (05:55)
[2017-07-11] MEDS ORDERED: MOM Conc 10 ML UD.LIQ PO PRN (05:55)
--- NOTE | 2017-07-11 06:21 | Internal Med History&Physical ---
Date of Encounter: 07/11/17 Time of Encounter: 06: Assessment and Plan (1) Atrial fibrillation with rapid ventricular response Current visit: No Status: Acute Will admit the pt into tele Reviewed EKG showed Afib with RVR Reviewed 2D Echo from 02/15 showed borderline systolic function LVEF 50% He already recieved Cardizem 10mg Iv bolus and started him on Cardizem gtt Will continue Cardizem gtt for now Cont Xarelto for anticoag will consult cardiology for further eval - for possible cardioversion cont NPO for now check serial troponin ..so far negative trop (2) CKD (chronic kidney disease) Current visit: No Status: Chronic slightly elevated than baseline avoid nephrotoxic meds Qualifiers: Chronic kidney disease stage: stage 2 (mild) Qualified Code(s): N18.2 - Chronic kidney disease, stage 2 (mild) (3) History of cardioversion Current visit: No Status: Chronic (4) SUMEET (obstructive sleep apnea) Current visit: No Status: Chronic will use CPAP HS Internal Medicine - H&P: HPI Chief complaint: Palpitations Admitted From: Emergency Dept Plans for Post Hospital Care: Home History of present illness: Mr. Sarkar is a 72 year old male with known PMH of CKD-2, SUMEET, Morbid obesity, Paroxysmal Afib, s/p Cardioversion x 3 so far, who is on Xarelto for anticoagulation presented to ER c/o severe palpitations, SOB and MCCLOUD. Patient stated hehas been following with Dr. Krueger for his paroxysmal A. fib. He was previously on sotalol however he became bradycardic and was taken off within the past 3 days and pt is scheduled for cardiversion and possible rythmal trail today at 9.00 AM. However pt developed severe Afib with RVR, with MCCLOUD last night. Patient denies fever, chills, diarrhea, vomiting, chest pain. He states he feels a fluttering in his chest associated with the atrial fibrillation. He has been unable to sleep tonight secondary to his symptoms. No recent trauma. Past Med Surg Social Fam HX - Past Medical History Medical history: atrial fibrillation, COPD, coronary artery disease, hyperlipidemia, hypertension Psychiatric history: no psych history - Past Surgical History Surgical History: cholecystectomy - Social History Smoking Status: Never smoker Smokeless Tobacco Status: No Alcohol use: rarely Drug use: none - Family History Mother Living Status: Hx Family Cardiac Disorders: Yes ([place]) Hx Family Cancer: Yes (Lung) Hx Family Neuromuscular Disorders: Yes (RA) Hx Family Neurologic Disorders: Yes (Epilepsy) Father Living Status: Hx Family Cardiac Disorders: Yes Internal Medicine - H&P: Meds Atorvastatin [Lipitor] 10 mg PO HS 02/20/17 [History] Rivaroxaban [Xarelto] 10 mg PO 1700 02/20/17 [History] Clopidogrel [Plavix] 75 mg PO DAILY tablet 02/22/17 [Rx] DiphenhydraMINE [Benadryl] 1 appl TP TID PRN #0 tube 02/22/17 [Rx] Sotalol [Betapace] 120 mg PO Q12HR #60 tablet 02/22/17 [Rx] 3 Allergy/AdvReac Type Severity Reaction Status Date / Time sedation AdvReac Nausea Uncoded 07/11/17 04:14 All Systems PM: A 10-system review of systems was performed and is negative for pertinent findings except as documented above in the HPI. Review of systems: All the systems are reviewed everything is benign except the systems and symptoms I mentioned in the history of present illness - Constitutional Vitals: Temp Pulse Resp BP Pulse Ox 98.1 F 120 16 107/84 94 07/11/17 04:14 07/11/17 05:55 07/11/17 05:55 07/11/17 05:55 07/11/17 05:55 General appearance: Present: A&O X 3, no acute distress, answers questions appropriately - Head Head exam: Present: atraumatic, normal inspection - Respiratory Respiratory exam: Present: decreased breath sounds. Absent: rales, respiratory distress, rhonchi, wheezes - Cardiovascular Cardiovascular exam: Present: irregular rhythm, +S1, +S2, tachycardia. Absent: systolic murmur - GI/Abdominal GI/Abdominal exam: Present: distended, soft. Absent: rebound, rigid, tenderness - Extremities Exam Extremities exam: Absent: calf tenderness, pedal edema, tenderness - Back Exam Back exam: Absent: CVA tenderness (L), CVA tenderness (R) - Neurological Exam Neurological exam: Present: alert, oriented X3 - Psychiatric Psychiatric exam: Present: normal affect, normal mood - Skin Skin exam: Present: intact. Absent: rash Internal Med - H&P Results - Labs CBC & Chem 7: 07/11/17 04:38 07/11/17 04:38 Labs: Short CBC 07/11/17 Range/Units 04:38 WBC 6.5 (4.3-11.1) K/mcL Hgb 14.0 (12.9-16.9) g/dL Hct 43.0 (37.5-50.1) % Plt Count 219 (140-400) K/mcL Neutrophils # 4.1 (1.6-8.9) K/mcL BMP 07/11/17 04:38 Sodium 141 Potassium 3.6 Chloride 109 Carbon Dioxide 20 BUN 21 Creatinine 1.32 H Glucose 105 H Calcium 9.3 Cardiac Enzymes 07/11/17 Range/Units 04:38 Troponin I 0.01 (0-0.03) ng/mL - Impressions ITS Impressions Chest X-Ray 07/11/17 04:19 IMPRESSION: No acute cardiopulmonary disease. D/ / Negro Falcon MD / Negro Falcon MD Interpreting Provider: Negro Falcon MD
[2017-07-11] MEDS: Famotidine 20 MG TABLET PO SCH ×2 (07:38→16:48)
--- NOTE | 2017-07-11 14:07 | Electrophysiology Consult Note ---
Date of Encounter: 07/11/17 Time of Encounter: 10:30 <Brea Ayers - Last Filed: 07/11/17 14:01> Date of Encounter: 07/11/17 <Reynaldo Krueger - Last Filed: 07/11/17 15:31> - Attending Attestation I have personally performed a face to face evaluation on this patient. I have reviewed and agree with the care plan. History and Exam by me shows: Stopped sotalol in preparation for tikosyn admission. Had recurrent PAF with RVR overnight, admitted now on cardizem drip, will start tikosym now. <Reynaldo Krueger - Last Filed: 07/11/17 15:31> Assessment and Plan (1) Atrial fibrillation with rapid ventricular response Current Visit: No Status: Acute Per cardiology: -Known PAF, stopped sotalol at home in preparation for admission today for tikosyn initiation. -ADmitted with a.fib RVR. -Currenlty on cardizem drip at 20mg/hour. -On xarelto for anticoagulation. Of note, patient was taking xarelto 10mg at home (creatinine clearance 110ml/min). Dr.John Krueger updated on subtherapeutic xarelto dose, states ok to proceed with tikosyn. Of note, if patient would require cardioversion, will need BARBARA prior. -Echo 01/2017 LVEf 50%, Mild MR, all winter with normal motion. -ECG with atrial fibrillation with RVR, HR 133, Qt 312, QTc 390ms. -Per discussion with Dr.John Krueger, will start tikosyn. WIll be ordered by , creatinine clearance 110ml/min. -Will check ECG 2 hours after each tikosyn dose. -Monitor Qt/QTc. -Will continue to monitor. Discussion w patient/family: The assessment and plan as outlined above was discussed with the patient who expressed understanding and agreement. All questions were answered. Thank you for involving us in the care of your patient. Please call with any questions. Discussed and reviewed with Dr.John Krueger. <Brea Ayers - Last Filed: 07/11/17 14:01> Discussion w patient/family: The assessment and plan as outlined above was discussed with the patient and/or family members who expressed understanding and agreement. All questions were answered. Thank you for involving us in the care of your patient. Please call with any questions. <Reynaldo Krueger - Last Filed: 07/11/17 15:31> History of Present Illness Consult date: 07/11/17 Requesting physician: Deysi Truong Consult reason: afib RVR Chief complaint: fluttering History of present illness: Mr. Sarkar is a 72 year old male with a relevant past medical history of depression, atrial fibrillation/flutter, CAD, cardiomyopathy. Patient was scheduled to be admitted today for initiation of tikosyn. Patient had stopped sotalol for wash out in the outpatient setting. Patient states last night he noticed worsening fluttering and palpitations. Also states his HR was elevated. Patient presented to [facility] and was noted to be in a.fib RVR. Patient admits to fluttering at this time. Patient denies chest pain. Patient admits to some shortness of breath. <Brea Ayers - Last Filed: 07/11/17 14:01> History of present illness: Mr. Sarkar is a 72 year old male <Reynaldo Krueger - Last Filed: 07/11/17 15:31> Past Med Surg Social Fam HX - Past Medical History Attestation: Yes The following information was validated with the patient. Source: patient, old records reviewed Medical history: atrial fibrillation, COPD, coronary artery disease, hyperlipidemia, hypertension Psychiatric history: no psych history - Past Surgical History Surgical History: cholecystectomy - Social History Smoking Status: Never smoker Smokeless Tobacco Status: No Alcohol use: rarely Drug use: none - Family History Mother Living Status: Hx Family Cardiac Disorders: Yes ([place]) Hx Family Cancer: Yes (Lung) Hx Family Neuromuscular Disorders: Yes (RA) Hx Family Neurologic Disorders: Yes (Epilepsy) Father Living Status: Hx Family Cardiac Disorders: Yes ([place] x2) <Brea Ayers - Last Filed: 07/11/17 14:01> Medications and Allergies <Brea Ayers - Last Filed: 07/11/17 14:01> <Reynaldo Krueger - Last Filed: 07/11/17 15:31> Atorvastatin [Lipitor] 10 mg PO HS 02/20/17 [History] Rivaroxaban [Xarelto] 10 mg PO 1700 02/20/17 [History] 3 Allergy/AdvReac Type Severity Reaction Status Date / Time sedation AdvReac Nausea Uncoded 07/11/17 04:14 All Systems Review: A 10-system review of systems was performed and is negative for pertinent findings except as documented above in the HPI. - Cardiovascular Cardiovascular: as per HPI, dyspnea on exertion, irregular heart rhythm, palpitations, rapid heart rate <Brea Ayers - Last Filed: 07/11/17 14:01> All Systems Review: A 10-system review of systems was performed and is negative for pertinent findings except as documented above in the HPI. <Reynaldo Krueger - Last Filed: 07/11/17 15:31> Physical Examination Vital Signs, Last 4 Hours Temp Pulse Resp BP Pulse Ox 07/11/17 12:00 121 112/80 07/11/17 11:20 98.6 F 121 18 131/91 97 07/11/17 10:40 120 132/85 General: Conversant, No Apparent Distress HEENT: Atraumatic, Normocephaly, Mucus Membranes Moist Neck: No JVD, Normal carotid pulses Cardiac: Normal S1 and S2, No Murmur, Other (Irregularly irregular, tacycardic. ) Lungs: Normal Breath Sounds, No Wheeze, Rales, Rhonchi Neuro: Alert and responsive, No focal deficits noted Abdomen: Soft, Non-Tender Skin: No rashes noted on visualized skin Musculoskeletal: No Chest Wall Tenderness Extremities: No Clubbing, No Cyanosis, No Edema, Normal Pulses <Brea Ayers - Last Filed: 07/11/17 14:01> Vital Signs, Last 4 Hours Pulse BP 07/11/17 14:00 120 116/93 07/11/17 12:00 121 112/80 <Reynaldo Krueger - Last Filed: 07/11/17 15:31> Results 07/11/17 04:38 07/11/17 04:38 Lab Results Impressions Chest X-Ray 07/11/17 04:19 IMPRESSION: No acute cardiopulmonary disease. D/ / Negro Falcon MD / Negro Falcon MD Interpreting Provider: Negro Falcon MD Active Medications Acetaminophen (Tylenol) 650 mg PO Q6HR PRN PRN Reason: Mild Pain (1-3) Stop: 01/10/18 05:56 Hydrocodone Bitart/Acetaminophen ([place] 5-325 Mg) 1 tab PO Q4HR PRN PRN Reason: Moderate Pain (4-6) Stop: 01/10/18 05:56 Docusate Sodium (Colace) 100 mg PO BID PRN PRN Reason: Constipation Stop: 01/10/18 05:56 Dofetilide (Tikosyn) 0.5 mg PO BID XU Stop: 01/10/18 21:01 Famotidine (Pepcid) 20 mg PO BIDAC XU Stop: 01/10/18 07:31 Last Admin: 07/11/17 07:38 Dose: 20 mg Diltiazem HCl 125 mg/ Dextrose 125 mls @ 5 mls/hr IVC .Q24H XU; 5 MG/HR PRN Reason: Protocol Stop: 01/10/18 04:46 Last Titration: 07/11/17 08:37 Dose: 20 mg/hr, 20 mls/hr Magnesium Hydroxide (Milk Of Magnesia Conc) 10 ml PO DAILY PRN PRN Reason: Indigestion Stop: 01/10/18 05:56 Morphine Sulfate (Morphine Sulfate) 2 mg IVP Q4HR PRN PRN Reason: Severe Pain (7-10) Stop: 01/10/18 05:56 Naloxone HCl (Narcan) 0.4 mg IVP Q2MIN PRN PRN Reason: Opioid Reversal Stop: 01/10/18 05:56 Promethazine HCl (Phenergan) 12.5 mg IVP Q6HR PRN PRN Reason: Nausea And Vomiting Stop: 01/10/18 05:56 Rivaroxaban (Xarelto) 20 mg PO 1700 XU Stop: 01/10/18 17:01 Laboratory Tests 07/11/17 07/11/17 07/11/17 04:38 04:38 04:38 Hgb 14.0 Creatinine 1.32 H Troponin I 0.01 07/11/17 10:33 Hgb Creatinine Troponin I 0.01 - Imaging and Cardiology Chest Xray: report reviewed Echo: report reviewed - EKG Interpretation EKG results cardiology: personally reviewed (ECG with atrial fibrillation with RVR, HR 133. Qt 312, QTc 390ms.), other (Telemetry reviewed with average HR 121 , atrial fibrillation. PVCs noted.) <Brea Ayers - Last Filed: 07/11/17 14:01> 07/11/17 04:38 07/11/17 04:38 Lab Results 07/11/17 10:33 Troponin I 0.01 <Reynaldo Krueger - Last Filed: 07/11/17 15:31> Consult Discharge Plan <Brea Ayers - Last Filed: 07/11/17 14:01> <Reynaldo Krueger - Last Filed: 07/11/17 15:31> - Plan Referrals: Gary Clifton DO [Primary Care Provider] -
[2017-07-11] MEDS: *HR* Rivaroxaban 10 MG TABLET PO SCH (16:48)
--- NOTE | 2017-07-11 16:53 | Electrocardiograph Report ---
[address] [address] Test Date: 2017-07-11 Pat Name: Luisito Sarkar Department: 103 Room: 2N06 Gender: M Clinical Courier: : 1945 Requested By: Reynaldo Orellana Order Number: [id number] Reading MD: Kaykay Krueger Measurements Intervals [place] Rate: 133 P: [place]: 0 QRS: 25 QRSD: 89 T: 83 QT: 312 QTc: 390 Interpretive Statements ATRIAL FIBRILLATION WITH RAPID VENTRICULAR RESPONSE MODERATE ST DEPRESSION [0.05+ mV ST DEPRESSION] Electronically Signed On 07-11-2017 16:52:17 EDT by Kaykay Krueger
[2017-07-12 03:51] LABS: Basophils % 0.6 %; Eosinophils # 0.2 K/mcL (0.0-0.6); Eosinophils % 3.4 %; Hematocrit 40.4 % (37.5-50.1); Hemoglobin 13.1 g/dL (12.9-16.9); Immature Granulocytes % 0.2 % (0-4); Lymphocytes # 1.2 K/mcL (0.6-4.6); Lymphocytes % 19.1 %; Mean Corpuscular HGB Conc 32.4 g/dL (31.6-35.5); Mean Corpuscular Hemoglobin 29.2 pg (28.0-33.3); Mean Platelet Volume 10.2 fL (9.4-12.4); Monocytes # 0.7 K/mcL (0.0-1.3); Monocytes % 10.5 %; Neutrophils # 4.3 K/mcL (1.6-8.9); Platelet Count 201 K/mcL (140-400); Red Blood Count 4.49 M/mcL (4.19-5.50); Red Cell Distribution Width 14.3 % (11.5-14.5); Segmented Neutrophils % 66.2 %
[2017-07-12 04:04] LABS: BUN/Creatinine Ratio 15 (6-26); Blood Urea Nitrogen 20 mg/dL (8-26); Calcium 8.8 mg/dL (8.6-10.8); Carbon Dioxide 25 mEq/L (19-29); Chloride 110 mEq/L (98-109); Chol/HDL Ratio 4.5 (0-4.9); Cholesterol 130 mg/dL (< 200); Glucose 109 mg/dL (70-99); HDL Cholesterol 29 mg/dL (40-59); LDL Cholesterol,Calculated 86 mg/dL (0-99); Magnesium 1.9 mg/dL (1.6-2.6); Osmolality,Calculated 293 (280-300); Potassium 3.9 mEq/L (3.5-4.5); Sodium 140 mEq/L (136-145); Triglycerides 74 mg/dL (< 150); eGFR For African Americans > 60 (> 60); eGFR For Non-African Americans 54 (> 60)
[2017-07-12] MEDS: Famotidine 20 MG TABLET PO SCH ×2 (08:58→16:02)
--- NOTE | 2017-07-12 10:49 | Electrophysiology ProgressNote ---
Date of Encounter: 07/12/17 Time of Encounter: 09:00 Assessment and Plan (1) Atrial fibrillation with rapid ventricular response Current Visit: No Status: Acute Per cardiology: -Known PAF, stopped sotalol at home in preparation for admission today for tikosyn initiation. -ADmitted with a.fib RVR. -On xarelto for anticoagulation. Of note, patient was taking xarelto 10mg at home (creatinine clearance 110ml/min). Dr.John Krueger updated on subtherapeutic xarelto dose, states ok to proceed with tikosyn. Of note, if patient would require cardioversion, will need BARBARA prior. -Echo 01/2017 LVEf 50%, Mild MR, all winter with normal motion. -ON tikosyn 500mcg BID. S/p 1 dose. -Baseline ECG with atrial fibrillation with RVR, HR 133, Qt 312, QTc 390ms. -ECG after first dose of tikosyn with atrial fibrillation, HR 118. Qt 352, QTc 422ms. -Will check ECG 2 hours after each tikosyn dose. -Monitor Qt/QTc. -Will continue to monitor. Discussion w patient/family: The assessment and plan as outlined above was discussed with the patient who expressed understanding and agreement. All questions were answered. Thank you for involving us in the care of your patient. Please call with any questions. Discussed and reviewed with Dr.John Krueger. Subjective Principal diagnosis: atrial fibrillation Interval history: Patient states he feels fine this morning. Patient denies palpitations or fluttering this morning. Objective Vital Signs, Last 4 Hours Temp Pulse Resp BP Pulse Ox 07/12/17 06:50 97.6 F 111 16 120/88 98 General: Conversant, No Apparent Distress HEENT: Atraumatic, Normocephaly, Mucus Membranes Moist Neck: No JVD, Normal carotid pulses Cardiac: Normal S1 and S2, No Murmur, Other (Irregularly, irregular) Lungs: Normal Breath Sounds, No Wheeze, Rales, Rhonchi Neuro: Alert and responsive, No focal deficits noted Abdomen: Soft, Non-Tender Skin: No rashes noted on visualized skin Musculoskeletal: No Chest Wall Tenderness Extremities: No Clubbing, No Cyanosis, No Edema, Normal Pulses Results 07/12/17 03:29 07/12/17 03:29 Lab Results Active Medications Acetaminophen (Tylenol) 650 mg PO Q6HR PRN PRN Reason: Mild Pain (1-3) Stop: 01/10/18 05:56 Hydrocodone Bitart/Acetaminophen ([place] 5-325 Mg) 1 tab PO Q4HR PRN PRN Reason: Moderate Pain (4-6) Stop: 01/10/18 05:56 Atorvastatin Calcium (Lipitor) 10 mg PO HS [facility] Stop: 01/11/18 21:01 Docusate Sodium (Colace) 100 mg PO BID PRN PRN Reason: Constipation Stop: 01/10/18 05:56 Dofetilide (Tikosyn) 0.5 mg PO BID [facility] Stop: 01/10/18 21:01 Last Admin: 07/12/17 08:58 Dose: 0.5 mg Famotidine (Pepcid) 20 mg PO BIDAC [facility] Stop: 01/10/18 07:31 Last Admin: 07/12/17 08:58 Dose: 20 mg Diltiazem HCl 125 mg/ Dextrose 125 mls @ 5 mls/hr IVC .Q24H XU; 5 MG/HR PRN Reason: Protocol Stop: 01/10/18 04:46 Last Titration: 07/12/17 06:18 Dose: 0 mg/hr, 0 mls/hr Magnesium Hydroxide (Milk Of Magnesia Conc) 10 ml PO DAILY PRN PRN Reason: Indigestion Stop: 01/10/18 05:56 Morphine Sulfate (Morphine Sulfate) 2 mg IVP Q4HR PRN PRN Reason: Severe Pain (7-10) Stop: 01/10/18 05:56 Naloxone HCl (Narcan) 0.4 mg IVP Q2MIN PRN PRN Reason: Opioid Reversal Stop: 01/10/18 05:56 Promethazine HCl (Phenergan) 12.5 mg IVP Q6HR PRN PRN Reason: Nausea And Vomiting Stop: 01/10/18 05:56 Rivaroxaban (Xarelto) 20 mg PO 1700 [facility] Stop: 01/10/18 17:01 Last Admin: 07/11/17 16:48 Dose: 20 mg Laboratory Tests 07/12/17 07/12/17 03:29 03:29 Hgb 13.1 Creatinine 1.32 H - Imaging and Cardiology Chest Xray: report reviewed - EKG Interpretation EKG results cardiology: personally reviewed (ECG 07/11/179 with atrial fibrillation, HR 118. Qt 352, QTc 422.), other (Telemetry reviewed with average HR previous 12 hours noted to be 114, atrial fibirllation. PVCs noted.) Consult Discharge Plan - Plan Referrals: Gary Clifton DO [Primary Care Provider] -
[2017-07-12] MEDS: *HR* Rivaroxaban 10 MG TABLET PO SCH (16:02)
--- NOTE | 2017-07-12 18:54 | Internal Med Progress Note ---
Date of Encounter: 07/12/17 Time of Encounter: 11:00 - Assessment and plan (1) Atrial fibrillation with rapid ventricular response Current Visit: No Status: Acute Assessment and plan: Patient on Tikosyn per cardiology recommendations. (2) CKD (chronic kidney disease) Current Visit: No Status: Chronic Assessment and plan: Stable; Continue to monitor. Qualifiers: Chronic kidney disease stage: stage 3 (moderate) Qualified Code(s): N18.3 - Chronic kidney disease, stage 3 (moderate) (3) CAD (coronary artery disease) Current Visit: No Status: Chronic Assessment and plan: Stable; continue home meds. Qualifiers: Coronary Disease-Associated Artery/Lesion type: [place] artery [place] vs. transplanted heart: [place] heart Associated angina: without angina Qualified Code(s): I25.10 - Atherosclerotic heart disease of [place] coronary artery without angina pectoris - Subjective Interval history: Patient with no issue or complaints this morning and no acute events overnight. - Constitutional Vitals: Temp Pulse Resp BP Pulse Ox 98.1 F 83 17 144/87 99 07/12/17 15:52 07/12/17 15:52 07/12/17 15:52 07/12/17 15:52 07/12/17 15:52 General appearance: Present: A&O X 3, no acute distress, answers questions appropriately - Respiratory Respiratory exam: Present: CTAB. Absent: accessory muscle use, rales, rhonchi, wheezes - Cardiovascular Cardiovascular exam: Present: RRR, +S1, +S2. Absent: diastolic murmur, gallop, rubs, systolic murmur Internal Medicine: Result - Labs CBC & Chem 7: 07/12/17 03:29 07/12/17 03:29 Labs: Short CBC 07/12/17 Range/Units 03:29 WBC 6.5 (4.3-11.1) K/mcL Hgb 13.1 (12.9-16.9) g/dL Hct 40.4 (37.5-50.1) % Plt Count 201 (140-400) K/mcL Neutrophils # 4.3 (1.6-8.9) K/mcL BMP 07/12/17 03:29 Sodium 140 Potassium 3.9 Chloride 110 H Carbon Dioxide 25 BUN 20 Creatinine 1.32 H Glucose 109 H Calcium 8.8 - ABG Interpretation ABG results: PT/INR, D-dimer PT 16.7 Seconds (9.4-12.1) H 07/11/17 04:38 Consult Discharge Plan - Plan Referrals: Gary Clifton DO [Primary Care Provider] -
--- NOTE | 2017-07-12 20:22 | Electrocardiograph Report ---
[address] [address] Test Date: 2017-07-11 Pat Name: Luisito Sarkar Department: 110 Room: 2N06 Gender: M Social Media Content Manager: : 1945 Requested By: Brea Ayers Order Number: [id number] Reading MD: Otto Davidson MD Measurements Intervals [place] Rate: 118 P: [place]: 0 QRS: 3 QRSD: 101 T: 73 QT: 352 QTc: 422 Interpretive Statements LONG RP Supraventricular tachycardia - SINUS TACHYCARDIA VERSUS ATRIAL FLUTTER Electronically Signed On 07-12-2017 20:20:30 EDT by Otto Davidson MD
[2017-07-13] MEDS: Famotidine 20 MG TABLET PO SCH ×2 (07:41→16:18)
[2017-07-13 08:28] LABS: Basophils % 0.7 %; Eosinophils # 0.2 K/mcL (0.0-0.6); Eosinophils % 3.8 %; Hematocrit 40.5 % (37.5-50.1); Hemoglobin 13.5 g/dL (12.9-16.9); Immature Granulocytes % 0.3 % (0-4); Lymphocytes # 1.1 K/mcL (0.6-4.6); Lymphocytes % 17.9 %; Mean Corpuscular HGB Conc 33.3 g/dL (31.6-35.5); Mean Corpuscular Hemoglobin 30.1 pg (28.0-33.3); Mean Corpuscular Volume 90.4 fL (83.0-100.0); Mean Platelet Volume 10.2 fL (9.4-12.4); Monocytes # 0.5 K/mcL (0.0-1.3); Monocytes % 8.7 %; Neutrophils # 4.2 K/mcL (1.6-8.9); Platelet Count 212 K/mcL (140-400); Red Blood Count 4.48 M/mcL (4.19-5.50); Red Cell Distribution Width 14.4 % (11.5-14.5); Segmented Neutrophils % 68.6 %
[2017-07-13 08:39] LABS: BUN/Creatinine Ratio 13 (6-26); Blood Urea Nitrogen 16 mg/dL (8-26); Carbon Dioxide 22 mEq/L (19-29); Chloride 110 mEq/L (98-109); Glucose 99 mg/dL (70-99); Sodium 140 mEq/L (136-145); eGFR For African Americans > 60 (> 60); eGFR For Non-African Americans 56 (> 60)
[2017-07-13 08:40] LABS: Calcium 9.3 mg/dL (8.6-10.8); Osmolality,Calculated 291 (280-300)
[2017-07-13 08:57] LABS: Potassium 4.5 mEq/L (3.5-4.5)
--- NOTE | 2017-07-13 13:23 | Electrophysiology ProgressNote ---
Date of Encounter: 07/13/17 Time of Encounter: 12:00 Assessment and Plan (1) Atrial fibrillation with rapid ventricular response Current Visit: No Status: Acute Per cardiology: -Known PAF, stopped sotalol at home in preparation for admission today for tikosyn initiation. -ADmitted with a.fib RVR. -On xarelto for anticoagulation. Of note, patient was taking xarelto 10mg at home (creatinine clearance 110ml/min). Dr.John Krueger updated on subtherapeutic xarelto dose, states ok to proceed with tikosyn. Of note, if patient would require cardioversion, will need BARBARA prior. -Echo 01/2017 LVEf 50%, Mild MR, all winter with normal motion. -ON tikosyn 500mcg BID. S/p 4 doses -Baseline ECG with atrial fibrillation with RVR, HR 133, Qt 312, QTc 390ms. -ECG after first dose of tikosyn with atrial fibrillation, HR 118. Qt 352, QTc 422ms. -ECG after second dose with atrial fibrillation, HR 114. Qt 357, QTc 425ms. -ECG after third dose with SR, HR 72. Qt 402, QTc 427ms. -ECG after fourth dose with SR, Hr 71. Qt 466, QTc 488ms. ECGs discussed and reviewed with Dr.John Krueger who states ok to proceed with tikosyn. states baseline QTc while in SR is 427. -Will check ECG 2 hours after each tikosyn dose. -Monitor Qt/QTc. -Will continue to monitor. Discussion w patient/family: The assessment and plan as outlined above was discussed with the patient who expressed understanding and agreement. All questions were answered. Thank you for involving us in the care of your patient. Please call with any questions. Discussed and reviewed with Dr.John Krueger. Subjective Principal diagnosis: atrial fibrillation Interval history: Patient states he feels great. Denies complaints. Objective Vital Signs, Last 4 Hours Temp Pulse Resp BP Pulse Ox 07/13/17 11:03 98.4 F 72 12 154/93 97 General: Conversant, No Apparent Distress HEENT: Atraumatic, Normocephaly, Mucus Membranes Moist Neck: No JVD, Normal carotid pulses Cardiac: Reg Rate and Rhythm, Normal S1 and S2, No Murmur Lungs: Normal Breath Sounds, No Wheeze, Rales, Rhonchi Neuro: Alert and responsive, No focal deficits noted Abdomen: Soft, Non-Tender Skin: No rashes noted on visualized skin Musculoskeletal: No Chest Wall Tenderness Extremities: No Clubbing, No Cyanosis, No Edema, Normal Pulses Results 07/13/17 08:16 07/13/17 08:16 Lab Results Active Medications Acetaminophen (Tylenol) 650 mg PO Q6HR PRN PRN Reason: Mild Pain (1-3) Stop: 01/10/18 05:56 Hydrocodone Bitart/Acetaminophen ([place] 5-325 Mg) 1 tab PO Q4HR PRN PRN Reason: Moderate Pain (4-6) Stop: 01/10/18 05:56 Atorvastatin Calcium (Lipitor) 10 mg PO HS [facility] Stop: 01/11/18 21:01 Last Admin: 07/12/17 21:18 Dose: 10 mg Clopidogrel Bisulfate (Plavix) 75 mg PO DAILY [facility] Stop: 01/11/18 15:46 Last Admin: 07/13/17 07:41 Dose: 75 mg Docusate Sodium (Colace) 100 mg PO BID PRN PRN Reason: Constipation Stop: 01/10/18 05:56 Dofetilide (Tikosyn) 0.5 mg PO BID [facility] Stop: 01/10/18 21:01 Last Admin: 07/13/17 07:50 Dose: 0.5 mg Famotidine (Pepcid) 20 mg PO BIDAC [facility] Stop: 01/10/18 07:31 Last Admin: 07/13/17 07:41 Dose: 20 mg Diltiazem HCl 125 mg/ Dextrose 125 mls @ 5 mls/hr IVC .Q24H XU; 5 MG/HR PRN Reason: Protocol Stop: 01/10/18 04:46 Last Admin: 07/13/17 05:16 Dose: Not Given Magnesium Hydroxide (Milk Of Magnesia Conc) 10 ml PO DAILY PRN PRN Reason: Indigestion Stop: 01/10/18 05:56 Morphine Sulfate (Morphine Sulfate) 2 mg IVP Q4HR PRN PRN Reason: Severe Pain (7-10) Stop: 01/10/18 05:56 Naloxone HCl (Narcan) 0.4 mg IVP Q2MIN PRN PRN Reason: Opioid Reversal Stop: 01/10/18 05:56 Promethazine HCl (Phenergan) 12.5 mg IVP Q6HR PRN PRN Reason: Nausea And Vomiting Stop: 01/10/18 05:56 Rivaroxaban (Xarelto) 20 mg PO 1700 XU Stop: 01/10/18 17:01 Last Admin: 07/12/17 16:02 Dose: 20 mg Laboratory Tests 07/12/17 07/13/17 03:29 08:16 Creatinine 1.32 H 1.27 H - Imaging and Cardiology Chest Xray: report reviewed Echo: report reviewed - EKG Interpretation EKG results cardiology: other (Telemetry reviewed with average HR previous 12 hours noted to be 73, sinus rhythm. PVCs and PACs noted. One 3 beat run of atrial tachycardia noted.) Consult Discharge Plan - Plan Referrals: Gary Clifton DO [Primary Care Provider] -
[2017-07-13] MEDS: *HR* Rivaroxaban 10 MG TABLET PO SCH (16:18)
--- NOTE | 2017-07-13 18:28 | Internal Med Progress Note ---
Date of Encounter: 07/13/17 Time of Encounter: 11:00 - Assessment and plan (1) Atrial fibrillation with rapid ventricular response Current Visit: No Status: Acute Assessment and plan: Patient on Tikosyn per cardiology recommendations. (2) CKD (chronic kidney disease) Current Visit: No Status: Chronic Assessment and plan: Stable; Continue to monitor. Qualifiers: Chronic kidney disease stage: stage 3 (moderate) Qualified Code(s): N18.3 - Chronic kidney disease, stage 3 (moderate) (3) CAD (coronary artery disease) Current Visit: No Status: Chronic Assessment and plan: Stable; continue home meds. Qualifiers: Coronary Disease-Associated Artery/Lesion type: [place] artery [place] vs. transplanted heart: [place] heart Associated angina: without angina Qualified Code(s): I25.10 - Atherosclerotic heart disease of [place] coronary artery without angina pectoris - Subjective Interval history: Patient with no issue or complaints this morning and no acute events overnight. - Constitutional Vitals: Temp Pulse Resp BP Pulse Ox 98.2 F 79 18 143/74 97 07/13/17 16:03 07/13/17 16:03 07/13/17 16:03 07/13/17 16:03 07/13/17 16:03 General appearance: Present: A&O X 3, no acute distress, answers questions appropriately - Respiratory Respiratory exam: Present: CTAB. Absent: accessory muscle use, rales, rhonchi, wheezes - Cardiovascular Cardiovascular exam: Present: RRR, +S1, +S2. Absent: diastolic murmur, gallop, rubs, systolic murmur Internal Medicine: Result - Labs CBC & Chem 7: 07/13/17 08:16 07/13/17 08:16 Labs: Short CBC 07/13/17 Range/Units 08:16 WBC 6.1 (4.3-11.1) K/mcL Hgb 13.5 (12.9-16.9) g/dL Hct 40.5 (37.5-50.1) % Plt Count 212 (140-400) K/mcL Neutrophils # 4.2 (1.6-8.9) K/mcL BMP 07/13/17 08:16 Sodium 140 Potassium 4.5 Chloride 110 H Carbon Dioxide 22 BUN 16 Creatinine 1.27 H Glucose 99 Calcium 9.3 - ABG Interpretation ABG results: PT/INR, D-dimer PT 16.7 Seconds (9.4-12.1) H 07/11/17 04:38 Consult Discharge Plan - Plan Referrals: Gary Clfiton DO [Primary Care Provider] -
--- NOTE | 2017-07-13 19:03 | Electrocardiograph Report ---
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
--- NOTE | 2017-07-13 19:55 | Electrocardiograph Report ---
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
--- NOTE | 2017-07-13 20:55 | Electrocardiograph Report ---
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
[2017-07-14] MEDS: Famotidine 20 MG TABLET PO SCH ×2 (08:10→17:10)
[2017-07-14 10:01] LABS: BUN/Creatinine Ratio 12 (6-26); Blood Urea Nitrogen 16 mg/dL (8-26); Calcium 9.1 mg/dL (8.6-10.8); Carbon Dioxide 28 mEq/L (19-29); Chloride 106 mEq/L (98-109); Glucose 101 mg/dL (70-99); Osmolality,Calculated 291 (280-300); Potassium 3.8 mEq/L (3.5-4.5); Sodium 140 mEq/L (136-145); eGFR For African Americans > 60 (> 60); eGFR For Non-African Americans 53 (> 60)
--- NOTE | 2017-07-14 11:22 | Electrophysiology ProgressNote ---
Date of Encounter: 07/14/17 Time of Encounter: 09:30 Assessment and Plan (1) Atrial fibrillation with rapid ventricular response Current Visit: No Status: Acute Per cardiology: -Known PAF, stopped sotalol at home in preparation for admission today for tikosyn initiation. -ADmitted with a.fib RVR. -On xarelto for anticoagulation. Of note, patient was taking xarelto 10mg at home (creatinine clearance 110ml/min). Dr.John Krueger updated on subtherapeutic xarelto dose, states ok to proceed with tikosyn. Of note, if patient would require cardioversion, will need BARBARA prior. -Echo 01/2017 LVEf 50%, Mild MR, all winter with normal motion. -ON tikosyn 500mcg BID. S/p 4 doses -Baseline ECG with atrial fibrillation with RVR, HR 133, Qt 312, QTc 390ms. -ECG after first dose of tikosyn with atrial fibrillation, HR 118. Qt 352, QTc 422ms. -ECG after second dose with atrial fibrillation, HR 114. Qt 357, QTc 425ms. -ECG after third dose with SR, HR 72. Qt 402, QTc 427ms. -ECG after fourth dose with SR, Hr 71. Qt 466, QTc 488ms. ECGs discussed and reviewed with Dr.John Krueger who states ok to proceed with tikosyn. states baseline QTc while in SR is 427. -ECG after fifth dose SR, HR 60. Qt 514, QTc 514ms. -ECG reviewed and discussed with Dr.John Krueger. Tikosyn stopped. -Will repeat ECG today and tomorrow. -Will keep inpatient until QTc normalizes. -Can consider amiodarone addition, possibly outpatient. -Will continue to monitor. Discussion w patient/family: The assessment and plan as outlined above was discussed with the patient who expressed understanding and agreement. All questions were answered. Thank you for involving us in the care of your patient. Please call with any questions. Discussed and reviewed with Dr.John Krueger. Subjective Principal diagnosis: atrial fibrillation Interval history: Patient states he feels great. Denies complaints. Patient denies palpitations or fluttering. Objective Vital Signs, Last 4 Hours Pulse 07/14/17 09:00 67 Vital Signs Temperature 98.1 F 07/11/17 04:14 Pulse Rate 140 07/11/17 04:14 Respiratory Rate 20 07/11/17 04:14 Blood Pressure 146/99 07/11/17 04:14 O2 Sat by Pulse Oximetry 97 07/11/17 04:14 Temperature 98.0 F 07/14/17 07:12 Pulse Rate 67 07/14/17 09:00 Respiratory Rate 18 07/14/17 07:12 Blood Pressure 137/80 07/14/17 07:12 O2 Sat by Pulse Oximetry 97 07/14/17 07:12 Oxygen Delivery Oxygen Delivery Room Air General: Conversant, No Apparent Distress HEENT: Atraumatic, Normocephaly, Mucus Membranes Moist Neck: No JVD, Normal carotid pulses Cardiac: Reg Rate and Rhythm, Normal S1 and S2, No Murmur Lungs: Normal Breath Sounds, No Wheeze, Rales, Rhonchi Neuro: Alert and responsive, No focal deficits noted Abdomen: Soft, Non-Tender Skin: No rashes noted on visualized skin Musculoskeletal: No Chest Wall Tenderness Extremities: No Clubbing, No Cyanosis, No Edema, Normal Pulses Results 07/13/17 08:16 07/14/17 09:27 Lab Results Active Medications Acetaminophen (Tylenol) 650 mg PO Q6HR PRN PRN Reason: Mild Pain (1-3) Stop: 01/10/18 05:56 Hydrocodone Bitart/Acetaminophen ([place] 5-325 Mg) 1 tab PO Q4HR PRN PRN Reason: Moderate Pain (4-6) Stop: 01/10/18 05:56 Atorvastatin Calcium (Lipitor) 10 mg PO HS [facility] Stop: 01/11/18 21:01 Last Admin: 07/13/17 20:57 Dose: 10 mg Clopidogrel Bisulfate (Plavix) 75 mg PO DAILY [facility] Stop: 01/11/18 15:46 Last Admin: 07/14/17 10:30 Dose: 75 mg Docusate Sodium (Colace) 100 mg PO BID PRN PRN Reason: Constipation Stop: 01/10/18 05:56 Famotidine (Pepcid) 20 mg PO BIDAC [facility] Stop: 01/10/18 07:31 Last Admin: 07/14/17 08:10 Dose: 20 mg Magnesium Hydroxide (Milk Of Magnesia Conc) 10 ml PO DAILY PRN PRN Reason: Indigestion Stop: 01/10/18 05:56 Morphine Sulfate (Morphine Sulfate) 2 mg IVP Q4HR PRN PRN Reason: Severe Pain (7-10) Stop: 01/10/18 05:56 Naloxone HCl (Narcan) 0.4 mg IVP Q2MIN PRN PRN Reason: Opioid Reversal Stop: 01/10/18 05:56 Promethazine HCl (Phenergan) 12.5 mg IVP Q6HR PRN PRN Reason: Nausea And Vomiting Stop: 01/10/18 05:56 Rivaroxaban (Xarelto) 20 mg PO 1700 [facility] Stop: 01/10/18 17:01 Last Admin: 07/13/17 16:18 Dose: 20 mg Laboratory Tests 07/13/17 07/14/17 08:16 09:27 Creatinine 1.27 H 1.34 H - Imaging and Cardiology Chest Xray: report reviewed Echo: report reviewed - EKG Interpretation EKG results cardiology: personally reviewed (ECG today with sinus rhythm, HR 60. Qt 514, QTc 514ms.), other (Telemetry reviewed with average HR previous 12 hours noted to be 64, sinus rhythm. PVCS, PACS, and one 6 beat run of atrial tachycardia note.) Consult Discharge Plan - Plan Referrals: Gary Clifton DO [Primary Care Provider] -
--- NOTE | 2017-07-14 15:27 | Electrocardiograph Report ---
[address] [address] Test Date: 2017-07-13 Pat Name: Luisito Sarkar Department: 110 Room: 2N06 Gender: M Ward Supervisor: : 1945 Requested By: Brea Ayers Order Number: [id number] Reading MD: Otto Davidson MD Measurements Intervals [place] Rate: 71 P: 23 [place]: 182 QRS: 21 QRSD: 100 T: 55 QT: 466 QTc: 488 Interpretive Statements SINUS RHYTHM WITH OCCASIONAL SUPRAVENTRICULAR PREMATURE COMPLEXES PROLONGED QT INTERVAL Electronically Signed On 07-14-2017 15:25:06 EDT by Otto Davidson MD
[2017-07-14] MEDS: *HR* Rivaroxaban 10 MG TABLET PO SCH (17:10)
--- NOTE | 2017-07-14 18:55 | Internal Med Progress Note ---
Date of Encounter: 07/14/17 Time of Encounter: 11:00 - Assessment and plan (1) Atrial fibrillation with rapid ventricular response Current Visit: No Status: Acute Assessment and plan: Tikosyn discontinued per cardiology recommendations. -Monitoring QT interval (2) CKD (chronic kidney disease) Current Visit: No Status: Chronic Assessment and plan: Stable; Continue to monitor. Qualifiers: Chronic kidney disease stage: stage 3 (moderate) Qualified Code(s): N18.3 - Chronic kidney disease, stage 3 (moderate) (3) CAD (coronary artery disease) Current Visit: No Status: Chronic Assessment and plan: Stable; continue home meds. Qualifiers: Coronary Disease-Associated Artery/Lesion type: [place] artery [place] vs. transplanted heart: [place] heart Associated angina: without angina Qualified Code(s): I25.10 - Atherosclerotic heart disease of [place] coronary artery without angina pectoris - Subjective Interval history: Patient with no issue or complaints this morning and no acute events overnight. - Constitutional Vitals: Temp Pulse Resp BP Pulse Ox 97 F L 80 18 134/84 97 07/14/17 16:04 07/14/17 16:04 07/14/17 16:04 07/14/17 16:04 07/14/17 16:04 General appearance: Present: A&O X 3, no acute distress, answers questions appropriately - Respiratory Respiratory exam: Present: CTAB. Absent: accessory muscle use, rales, rhonchi, wheezes - Cardiovascular Cardiovascular exam: Present: RRR, +S1, +S2. Absent: diastolic murmur, gallop, rubs, systolic murmur Internal Medicine: Result - Labs CBC & Chem 7: 07/13/17 08:16 07/14/17 09:27 Labs: BMP 07/14/17 09:27 Sodium 140 Potassium 3.8 Chloride 106 Carbon Dioxide 28 BUN 16 Creatinine 1.34 H Glucose 101 H Calcium 9.1 - ABG Interpretation ABG results: PT/INR, D-dimer PT 16.7 Seconds (9.4-12.1) H 07/11/17 04:38 Consult Discharge Plan - Plan Referrals: Gary Clifton DO [Primary Care Provider] -
--- NOTE | 2017-07-14 19:08 | Electrocardiograph Report ---
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
[2017-07-15] MEDS: Famotidine 20 MG TABLET PO SCH (07:50)
[2017-07-15 09:12] LABS: BUN/Creatinine Ratio 11 (6-26); Blood Urea Nitrogen 15 mg/dL (8-26); Calcium 9.5 mg/dL (8.6-10.8); Carbon Dioxide 26 mEq/L (19-29); Chloride 107 mEq/L (98-109); Glucose 90 mg/dL (70-99); Osmolality,Calculated 292 (280-300); Potassium 4.2 mEq/L (3.5-4.5); Sodium 141 mEq/L (136-145); eGFR For African Americans > 60 (> 60); eGFR For Non-African Americans 50 (> 60)
[2017-07-15 11:53] VITALS: BP 129/71
--- NOTE | 2017-07-15 12:26 | Cardiology Progress Note ---
Date of Encounter: 07/15/17 Time of Encounter: 12:24 Assessment and Plan (1) Atrial fibrillation with rapid ventricular response Current Visit: No Status: Acute Per cardiology: -Known PAF, stopped sotalol at home in preparation for tikosyn initiation. -Admitted with alfredo RVR. -On xarelto for anticoagulation. Of note, patient was taking xarelto 10mg at home (creatinine clearance 110ml/min). Increased to 20mg daily. -Echo 01/2017 LVEf 50%, Mild MR, all winter with normal motion. -Received 4 doses of 500mcg BID Tikosyn. Tikosyn had to be stopped due to QTc prolongation--514ms. Tikosyn was stopped prior to yesterday AM dose. -QTc today 466ms. -Discussed with Dr. Reynaldo Krueger--okay to be d/c'd home today with instructions to start Amiodarone 200mg BID tomorrow. Will continue 200mg BID x 1 month, then decrease to 200mg daily. Will give Rx. Cardiology signing off. Reconsult PRN. Follow-up as outpt--will coordinate. Discussion w patient/family: The assessment and plan as outlined above was discussed with the patient and/or family members who expressed understanding and agreement. All questions were answered. Thank you for involving us in the care of your patient. Please call with any questions. I will discuss all the above with Dr. Kaykay Krueger and make changes as necessary. Subjective Principal diagnosis: atrial fibrillation Interval history: Pt denies any complaints this AM. QTc improved to 462ms. Still maintaining SR. Objective Vital Signs, Last 4 Hours Temp Pulse Resp BP Pulse Ox 07/15/17 11:49 98.1 F 68 18 129/71 97 Vital Signs Temp Pulse Resp BP Pulse Ox 07/15/17 11:49 98.1 F 68 18 129/71 97 07/15/17 07:59 97.7 F 65 18 133/93 97 07/15/17 04:40 61 07/15/17 03:50 69 18 140/82 96 07/14/17 23:30 72 07/14/17 23:17 97.8 F 71 18 150/86 97 07/14/17 20:20 72 07/14/17 18:53 97.3 F L 65 18 154/85 97 07/14/17 16:04 97 F L 80 18 134/84 97 Intake and Output 07/14/17 07/15/17 07/15/17 23:59 07:59 15:59 Intake Total 240 / 240 100 / 100 240 / 240 Output Total 750 / 750 400 / 400 Balance -510 / -510 -300 / -300 240 / 240 Intake: Oral 240 / 240 100 / 100 240 / 240 Output: Urine 750 / 750 400 / 400 Other: Meal Dinner Breakfast Percent of Meal Consumed 100% 100% Stool Size Moderate Stool Consistency soft Stool Color Brown Weight 151.3 kg Patient Weight 07/15/17 23:59 Weight 151.3 kg General: Conversant, No Apparent Distress HEENT: Atraumatic, Normocephaly, Mucus Membranes Moist Neck: No JVD, Normal carotid pulses Cardiac: Reg Rate and Rhythm, Normal S1 and S2, No Murmur Lungs: Normal Breath Sounds, No Wheeze, Rales, Rhonchi Neuro: Alert and responsive, No focal deficits noted Abdomen: Soft, Non-Tender Skin: No rashes noted on visualized skin Musculoskeletal: No Chest Wall Tenderness Extremities: No Clubbing, No Cyanosis, No Edema, Normal Pulses Results 07/13/17 08:16 07/15/17 08:13 Lab Results 07/15/17 08:13 Sodium 141 Potassium 4.2 Chloride 107 Carbon Dioxide 26 BUN 15 Creatinine 1.40 H Glucose 90 Calcium 9.5 BMP 07/15/17 Range/Units 08:13 Sodium 141 (136-145) mEq/L Potassium 4.2 (3.5-4.5) mEq/L Chloride 107 (98-109) mEq/L Carbon Dioxide 26 (19-29) mEq/L BUN 15 (8-26) mg/dL Creatinine 1.40 H (0.72-1.25) mg/dL Glucose 90 (70-99) mg/dL Calcium 9.5 (8.6-10.8) mg/dL Active Medications Acetaminophen (Tylenol) 650 mg PO Q6HR PRN PRN Reason: Mild Pain (1-3) Stop: 01/10/18 05:56 Hydrocodone Bitart/Acetaminophen ([place] 5-325 Mg) 1 tab PO Q4HR PRN PRN Reason: Moderate Pain (4-6) Stop: 01/10/18 05:56 Atorvastatin Calcium (Lipitor) 10 mg PO HS [facility] Stop: 01/11/18 21:01 Last Admin: 07/14/17 20:22 Dose: 10 mg Clopidogrel Bisulfate (Plavix) 75 mg PO DAILY [facility] Stop: 01/11/18 15:46 Last Admin: 07/15/17 07:50 Dose: 75 mg Docusate Sodium (Colace) 100 mg PO BID PRN PRN Reason: Constipation Stop: 01/10/18 05:56 Famotidine (Pepcid) 20 mg PO BIDAC [facility] Stop: 01/10/18 07:31 Last Admin: 07/15/17 07:50 Dose: 20 mg Magnesium Hydroxide (Milk Of Magnesia Conc) 10 ml PO DAILY PRN PRN Reason: Indigestion Stop: 01/10/18 05:56 Morphine Sulfate (Morphine Sulfate) 2 mg IVP Q4HR PRN PRN Reason: Severe Pain (7-10) Stop: 01/10/18 05:56 Naloxone HCl (Narcan) 0.4 mg IVP Q2MIN PRN PRN Reason: Opioid Reversal Stop: 01/10/18 05:56 Promethazine HCl (Phenergan) 12.5 mg IVP Q6HR PRN PRN Reason: Nausea And Vomiting Stop: 01/10/18 05:56 Rivaroxaban (Xarelto) 20 mg PO 1700 [facility] Stop: 01/10/18 17:01 Last Admin: 07/14/17 17:10 Dose: 20 mg - EKG Interpretation EKG results cardiology: other (12 hr tele AVG HR 70, SR with PACs.) Consult Discharge Plan - Plan Referrals: Gary Clifton DO [Primary Care Provider] -
--- NOTE | 2017-07-15 15:35 | Discharge Summary ---
Date of Encounter: 07/15/17 Time of Encounter: 12:00 - Discharge Diagnosis (1) Atrial fibrillation with rapid ventricular response Priority: Primary Status: Acute (2) CKD (chronic kidney disease) Priority: Secondary Status: Chronic Qualifiers: Chronic kidney disease stage: stage 3 (moderate) Qualified Code(s): N18.3 - Chronic kidney disease, stage 3 (moderate) (3) CAD (coronary artery disease) Priority: Secondary Status: Chronic Qualifiers: Coronary Disease-Associated Artery/Lesion type: [place] artery [place] vs. transplanted heart: [place] heart Associated angina: without angina Qualified Code(s): I25.10 - Atherosclerotic heart disease of [place] coronary artery without angina pectoris - Discharge Medications Prescriptions: Amiodarone [Cordarone] 200 mg PO BID #60 tablet Home Medications: Atorvastatin [Lipitor] 10 mg PO HS 02/20/17 [History] Rivaroxaban [Xarelto] 10 mg PO 1700 02/20/17 [History] Clopidogrel [Plavix] 75 mg PO DAILY 07/12/17 [History] Amiodarone [Cordarone] 200 mg PO BID #60 tablet 07/15/17 [Rx] Allergies/Adverse Reactions: 3 Allergy/AdvReac Type Severity Reaction Status Date / Time sedation AdvReac Nausea Uncoded 07/11/17 04:14 Procedures/tests Complete & Pending: Procedures Performed prior 72 hours Category Date Time Status ECG 12 lead ECG [ECG] Routine Y 07/12/17 23:00 Completed ECG 12 lead ECG [ECG] Routine Y 07/13/17 10:00 Completed ECG 12 lead ECG [ECG] Routine Y 07/13/17 23:00 Completed ECG 12 lead ECG [ECG] Routine Y 07/14/17 10:56 Ordered Date of admission: 07/11/17 06:06 Primary care physician: Gary Clifton, Consults: 07/11/17 13:00 Consult to Electrophysiology (EP) [CONS] Routine Consulting Provider: Electrophysiology Shirley Reason for Consult: atrial fibrillation Call Completed: Yes - Patient Status Disposition: Home, Self-Care Condition: Good - Discharge Instructions Follow Up With: Gary Clifton DO [Primary Care Provider] - Hospital course: Patient is a 72 year old male with past medical history significant for CKD-2, SUMEET, Morbid obesity, Paroxysmal Afib, s/p Cardioversion x 3 so far (on Xarelto for anticoagulation) who presented to the ER on 07/11/17 c/o severe palpitations , SOB and MCCLOU[place]. Patient follows with Dr. Krueger for his paroxysmal A. fib. Patient had been on sotalol however he became bradycardic and was taken off 3 days prior to admission; he was scheduled for cardiversion and possible rythmal trial the day of admission. Patient however developed atrial fibrillation with RVR with dyspnea on exertion. Patient was not able to sleep secondary to his symptoms. During patients hospital day, cardiology was consulted with recommendations to give 4 doses of 500mcg BID Tikosyn. Tikosyn had to be stopped due to QTc prolongation--514ms; after stopping,-QTc 466ms. Recommendations to discharge home to start Amiodarone 200mg BID tomorrow and will continue 200mg BID x 1 month, then decrease to 200mg daily. Patient will follow up with cardiology as outpatient. - Time Spent with Patient Total time spent providing and/or coordinating discharge services: Less than 30 minutes - Constitutional Vitals: Temp Pulse Resp BP Pulse Ox 98.1 F 68 18 129/71 97 07/15/17 11:49 07/15/17 11:49 07/15/17 11:49 07/15/17 11:49 07/15/17 11:49 General appearance: Present: A&O X 3, no acute distress, answers questions appropriately - Cardiovascular Cardiovascular exam: Present: RRR, +S1, +S2. Absent: diastolic murmur, gallop, rubs, systolic murmur
--- NOTE | 2017-07-16 11:04 | Electrocardiograph Report ---
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
--- NOTE | 2017-07-16 12:06 | Electrocardiograph Report ---
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
== END 2017-07-15 16:55 | disposition home or self-care (01) | DRG 309 ==
LOC: EMEROO 04:12 → 2NNU 04:12 → SUATTDRO 06:06 → 2NNU 06:30
PROVIDERS: ADMIT Family Medicine; ATTEND Hospitalist

== ENCOUNTER 2018-03-20 08:34 | Observation (INO) ==
[2018-03-20] MEDS ORDERED: Aspirin 325 MG TABLET PO ONE (09:04)
--- NOTE | 2018-03-20 09:38 | Emergency Department Note ---
Disposition Clinical Impression: Dyspnea Qualifiers: Dyspnea type: dyspnea on exertion Qualified Code(s): R06.09 - Other forms of dyspnea Chest pain Qualifiers: Chest pain type: unspecified Qualified Code(s): R07.9 - Chest pain, unspecified Atrial fibrillation Qualifiers: Atrial fibrillation type: persistent Qualified Code(s): I48.1 - Persistent atrial fibrillation Disposition: Admitted As Inpatient Condition: Good Time of Disposition: 13:49 General Adult HPI - General Chief complaint: ED Arrhythmia/Palpitations Stated complaint: "afib,meghna" Time Seen by Provider: 03/20/18 08:41 Nursing Notes Reviewed: Yes Vital Signs Reviewed: Yes - History of Present Illness HPI Narrative: Feeling like his heart rate is out of rhythm for the past month. Also feeling very tired and weak. Chest heaviness associated with this. As well as some shortness of breath on exertion. Pain Scale: 4 - Related Data Home Medications Medication Instructions Recorded Confirmed Atorvastatin [Lipitor] 10 mg PO HS 02/20/17 07/11/17 Rivaroxaban [Xarelto] 10 mg PO 1700 02/20/17 07/11/17 Clopidogrel [Plavix] 75 mg PO DAILY 07/12/17 07/12/17 Previous Rx's Medication Instructions Recorded Amiodarone [Cordarone] 200 mg PO BID #60 tablet 07/15/17 amLODIPine [Norvasc] 5 mg PO DAILY #30 tablet 12/13/17 Allergies Allergy/AdvReac Type Severity Reaction Status Date / Time Poison Jie Extract Allergy Rash Verified 03/20/18 11:34 sedation AdvReac Nausea Uncoded 03/20/18 11:34 All systems ED: reviewed and negative except as stated. Constitutional: Denies: fever, chills Cardiovascular: Reports: chest pain, palpitations. Denies: syncope Respiratory: Reports: dyspnea. Denies: cough Gastrointestinal: Denies: abdominal pain, nausea, vomiting, diarrhea, hematemesis, melena, hematochezia Genitourinary: Denies: urgency, dysuria, frequency Musculoskeletal: Denies: back pain, neck pain Past Medical History - Past Medical History Attestation: Yes The following information was validated with the patient. Source: patient Medical history: Reports: atrial fibrillation, COPD, coronary artery disease, hyperlipidemia, hypertension Surgical history: Reports: cholecystectomy Psychiatric history: Reports: no psych history - Social History Smoking Status: Never smoker Smokeless Tobacco Status: No Alcohol use: Reports: rarely Drug use: Reports: none Physical Exam - General Limitations: no limitations General appearance: alert, in no apparent distress - Head Head exam: atraumatic, normocephalic, normal inspection - Eye Eye exam: Present: normal appearance, PERRL, EOMI - ENT ENT exam: normal exam, normal oropharynx, mucous membranes moist - Neck Neck exam: Present: normal inspection, full ROM, trachea midline - Chest Chest inspection: Present: normal inspection, symmetric chest wall rise - Respiratory Respiratory exam: Present: normal lung sounds bilaterally - Cardiovascular Cardiovascular exam: Present: regular rate, normal rhythm, normal heart sounds - Abdominal Exam Abdominal exam: Present: soft, Non-Tender. Absent: tenderness, distention, guarding, rebound, rigidity, organomegaly - Extremities Exam Extremities exam: Present: normal inspection, full ROM, normal capillary refill. Absent: tenderness, pedal edema - Back Exam Back exam: Present: normal inspection, full ROM. Absent: tenderness - Neurological Exam Neurological exam: Present: alert, oriented X3 - Psychiatric Psychiatric exam: Present: normal affect, normal mood - Skin Skin exam: Present: warm, dry, intact, normal color Course Course Narrative: Male patient presenting to the emergency department complaining of feeling like his heart is out of rhythm. He states that he has been in A. fib before and this is what it feels like. He reports that he is unable to take a deep breath. He describes a heaviness on his chest. States that approximately a year ago he had to be chemically cardioverted. He has been electrically cardioverted for this previously. He has had 5 episodes where he went into A. fib and had to be cardioverted back into sinus rhythm. Did Have an ablation previously as well. He denies any recent illnesses coughs cold or congestion. He does report that his shortness of breath feels like he cannot just "take a deep cleansing breath." He does not appear to be in distress whenever I go into his room. He is reading a book quietly. He does not have any signs of edema to his extremities. Abdomen is soft and nontender however the exam is inhibited by patient's body habitus. He states that he is currently on Xarelto and Plavix and amiodarone and has not missed any doses.. He states his symptoms have been ongoing for the past month. He did do a Holter monitor over the weekend and has since turned that in. He had a cardiac workup on patient and likely admit to the hospital for A. fib. He is rate controlled at this time at a rate of 93. - Reevaluation(s) Reevaluation #1: Patient reassessed x-ray is normal and troponin is normal. He states he still has a funny feeling. He is A. fib and is rate controlled at this time on Xarelto. He is anticoagulated. We will admit patient to the hospital at this time. Time: 13:36 - Consultations Consultation #1: I spoke with Dr Underwood. She advised that they will see the Pt in consult. Time: 13:36 Consultation #2: Dr. Unedrwood called back. She is now advising that she did a chart search for the patient and the last time he saw him he was out of rhythm. She states that the plan was to continue on the antiarrhythmic amiodarone and that they can see the patient outpatient. I advised that he did turn in his Holter monitor on Monday and she was unaware of this. We also discussed with the patient was having chest pain and exertional dyspnea associated with this feeling. She advises to admit to the hospitalist and if they feel the need to consult that they can further consult. She requested we canceled the consult at this time. Time: 13:47 Consultation #3: Dr Adamson accepted Pt in stable condition. Time: 13:56 Vital Signs Temperature 98.1 F 03/20/18 08:38 Pulse Rate 109 03/20/18 08:38 Respiratory Rate 28 03/20/18 08:38 Blood Pressure 151/79 03/20/18 08:38 O2 Sat by Pulse Oximetry 96 03/20/18 08:38 Temperature 99.0 F 03/20/18 18:43 Pulse Rate 97 03/20/18 18:43 Respiratory Rate 16 03/20/18 18:43 Blood Pressure 160/73 03/20/18 18:43 O2 Sat by Pulse Oximetry 95 03/20/18 18:43 Oxygen Delivery Oxygen Delivery Room Air Medical Decision Making - Medical Records Medical records reviewed: Yes I reviewed the patient's medical records. - Lab Data Lab results reviewed: Yes I reviewed the patient's lab results. Result diagrams: 03/20/18 09:21 03/20/18 10:23 Lab Results 03/20/18 03/20/18 03/20/18 Range/Units 09:21 09:21 10:14 WBC 6.9 (4.3-11.1) K/mcL RBC 5.07 (4.19-5.50) M/mcL Hgb 15.2 (12.9-16.9) g/dL Hct 45.7 (37.5-50.1) % MCV 90.1 (83.0-100.0) fL MCH 30.0 (28.0-33.3) pg MCHC 33.3 (31.6-35.5) g/dL RDW 14.8 H (11.5-14.5) % Plt Count 244 (140-400) K/mcL MPV 10.1 (9.4-12.4) fL Immature Gran % 0.3 (0-4) % Seg Neutrophils % 69.1 % Lymphocytes % 18.5 % Monocytes % 9.3 % Eosinophils % 1.9 % Basophils % 0.9 % Neutrophils # 4.8 (1.6-8.9) K/mcL Lymphocytes # 1.3 (0.6-4.6) K/mcL Monocytes # 0.6 (0.0-1.3) K/mcL Eosinophils # 0.1 (0.0-0.6) K/mcL Basophils # 0.1 (0.0-0.2) K/mcL PT 16.9 H (9.4-12.1) Seconds INR 1.6 APTT 43.5 H (26.0-36.0) Seconds D-Dimer (0-500) ng/mLFEU Sodium (136-145) mEq/L Potassium (3.5-5.1) mEq/L Chloride (98-107) mEq/L Carbon Dioxide (23-29) mEq/L BUN (8-23) mg/dL Creatinine (0.70-1.30) mg/dL Est GFR ( Amer) (> 60) Est GFR (Non-Af Amer) (> 60) BUN/Creatinine Ratio (6-26) Glucose (70-105) mg/dL Calculated Osmolality (280-300) Calcium (8.6-10.3) mg/dL Total Bilirubin (0.3-1.0) mg/dL AST (13-39) Units/L ALT (7-52) Units/L Alkaline Phosphatase (34-104) Units/L Troponin I (< 0.04) ng/mL B-Natriuretic Peptide (Less than 100) pg/mL Serum Total Protein (6.4-8.9) g/dL Albumin (3.5-5.7) g/dL Globulin (2.4-3.5) g/dL Albumin/Globulin Ratio (1.1-2.2) TSH (0.340-5.600) mcIU/mL Specimen Rejected Hemolyzed 03/20/18 03/20/18 03/20/18 Range/Units 10:23 16:26 16:26 WBC (4.3-11.1) K/mcL RBC (4.19-5.50) M/mcL Hgb (12.9-16.9) g/dL Hct (37.5-50.1) % MCV (83.0-100.0) fL MCH (28.0-33.3) pg MCHC (31.6-35.5) g/dL RDW (11.5-14.5) % Plt Count (140-400) K/mcL MPV (9.4-12.4) fL Immature Gran % (0-4) % Seg Neutrophils % % Lymphocytes % % Monocytes % % Eosinophils % % Basophils % % Neutrophils # (1.6-8.9) K/mcL Lymphocytes # (0.6-4.6) K/mcL Monocytes # (0.0-1.3) K/mcL Eosinophils # (0.0-0.6) K/mcL Basophils # (0.0-0.2) K/mcL PT (9.4-12.1) Seconds INR APTT (26.0-36.0) Seconds D-Dimer 235 (0-500) ng/mLFEU Sodium 140 (136-145) mEq/L Potassium 4.2 (3.5-5.1) mEq/L Chloride 106 (98-107) mEq/L Carbon Dioxide 23 (23-29) mEq/L BUN 24 H (8-23) mg/dL Creatinine 1.57 H (0.70-1.30) mg/dL Est GFR ( Amer) 53 L (> 60) Est GFR (Non-Af Amer) 44 L (> 60) BUN/Creatinine Ratio 15 (6-26) Glucose 104 (70-105) mg/dL Calculated Osmolality 294 (280-300) Calcium 9.3 (8.6-10.3) mg/dL Total Bilirubin 0.9 (0.3-1.0) mg/dL AST 15 (13-39) Units/L ALT 15 (7-52) Units/L Alkaline Phosphatase 80 (34-104) Units/L Troponin I < 0.03 (< 0.04) ng/mL B-Natriuretic Peptide 56 (Less than 100) pg/mL Serum Total Protein 7.1 (6.4-8.9) g/dL Albumin 4.2 (3.5-5.7) g/dL Globulin 2.9 (2.4-3.5) g/dL Albumin/Globulin Ratio 1.4 (1.1-2.2) TSH 3.920 (0.340-5.600) mcIU/mL Specimen Rejected 03/20/18 Range/Units 16:26 WBC (4.3-11.1) K/mcL RBC (4.19-5.50) M/mcL Hgb (12.9-16.9) g/dL Hct (37.5-50.1) % MCV (83.0-100.0) fL MCH (28.0-33.3) pg MCHC (31.6-35.5) g/dL RDW (11.5-14.5) % Plt Count (140-400) K/mcL MPV (9.4-12.4) fL Immature Gran % (0-4) % Seg Neutrophils % % Lymphocytes % % Monocytes % % Eosinophils % % Basophils % % Neutrophils # (1.6-8.9) K/mcL Lymphocytes # (0.6-4.6) K/mcL Monocytes # (0.0-1.3) K/mcL Eosinophils # (0.0-0.6) K/mcL Basophils # (0.0-0.2) K/mcL PT (9.4-12.1) Seconds INR APTT (26.0-36.0) Seconds D-Dimer (0-500) ng/mLFEU Sodium (136-145) mEq/L Potassium (3.5-5.1) mEq/L Chloride (98-107) mEq/L Carbon Dioxide (23-29) mEq/L BUN (8-23) mg/dL Creatinine (0.70-1.30) mg/dL Est GFR ( Amer) (> 60) Est GFR (Non-Af Amer) (> 60) BUN/Creatinine Ratio (6-26) Glucose (70-105) mg/dL Calculated Osmolality (280-300) Calcium (8.6-10.3) mg/dL Total Bilirubin (0.3-1.0) mg/dL AST (13-39) Units/L ALT (7-52) Units/L Alkaline Phosphatase (34-104) Units/L Troponin I < 0.03 (< 0.04) ng/mL B-Natriuretic Peptide (Less than 100) pg/mL Serum Total Protein (6.4-8.9) g/dL Albumin (3.5-5.7) g/dL Globulin (2.4-3.5) g/dL Albumin/Globulin Ratio (1.1-2.2) TSH (0.340-5.600) mcIU/mL Specimen Rejected - Radiology Data Radiology results reviewed: Yes I reviewed the patient's radiology results. Chest X-Ray 03/20/18 09:04 IMPRESSION: Stable exam with no new acute cardiopulmonary findings. D/ / Mariela Barajas MD / Mariela Barajas MD Interpreting Provider: Mariela Barajas MD - EKG Data EKG #1 EKG attestation: Yes I reviewed and interpreted this EKG. EKG results narrative: Atrial fib at a rate of 93. QRS duration is 101. QT is 389. QTC is 440. No signs of acute ischemia. No change from previous EKG dated 03/16/2018. He was in A. fib rate controlled at that time as well.
[2018-03-20 09:45] LABS: Basophils # 0.1 K/mcL (0.0-0.2); Basophils % 0.9 %; Eosinophils # 0.1 K/mcL (0.0-0.6); Eosinophils % 1.9 %; Hematocrit 45.7 % (37.5-50.1); Hemoglobin 15.2 g/dL (12.9-16.9); Immature Granulocytes % 0.3 % (0-4); Lymphocytes # 1.3 K/mcL (0.6-4.6); Lymphocytes % 18.5 %; Mean Corpuscular HGB Conc 33.3 g/dL (31.6-35.5); Mean Corpuscular Volume 90.1 fL (83.0-100.0); Mean Platelet Volume 10.1 fL (9.4-12.4); Monocytes # 0.6 K/mcL (0.0-1.3); Monocytes % 9.3 %; Neutrophils # 4.8 K/mcL (1.6-8.9); Platelet Count 244 K/mcL (140-400); Red Blood Count 5.07 M/mcL (4.19-5.50); Red Cell Distribution Width 14.8 % (11.5-14.5); Segmented Neutrophils % 69.1 %
[2018-03-20 09:52] LABS: INR 1.6; Prothrombin Time 16.9 Seconds (9.4-12.1)
[2018-03-20 09:55] LABS: Activated Partial Thrombo Time 43.5 Seconds (26.0-36.0)
--- NOTE | 2018-03-20 10:07 | Emergency Department Note ---
Disposition Clinical Impression: Dyspnea Qualifiers: Dyspnea type: unspecified Qualified Code(s): R06.00 - Dyspnea, unspecified Disposition: Admitted As Inpatient Referrals: Gary Clifton DO [Primary Care Provider] - Forms: ED Satisfaction Letter General Adult HPI - General Chief complaint: ED Arrhythmia/Palpitations Stated complaint: "afib,meghna" Time Seen by Provider: 03/20/18 08:41 - History of Present Illness Pain Scale: 4 - Related Data Home Medications Medication Instructions Recorded Confirmed Atorvastatin [Lipitor] 10 mg PO HS 02/20/17 07/11/17 Rivaroxaban [Xarelto] 10 mg PO 1700 02/20/17 07/11/17 Clopidogrel [Plavix] 75 mg PO DAILY 07/12/17 07/12/17 Previous Rx's Medication Instructions Recorded Amiodarone [Cordarone] 200 mg PO BID #60 tablet 07/15/17 Clopidogrel Bisulfate [Plavix] 75 mg PO DAILY #30 tablet 07/15/17 amLODIPine [Norvasc] 5 mg PO DAILY #30 tablet 12/13/17 Allergies Allergy/AdvReac Type Severity Reaction Status Date / Time Poison Jie Extract Allergy Rash Verified 03/20/18 08:38 sedation AdvReac Nausea Uncoded 03/20/18 08:38 Past Medical History - Past Medical History Medical history: Reports: atrial fibrillation, COPD, coronary artery disease, hyperlipidemia, hypertension Surgical history: Reports: cholecystectomy Psychiatric history: Reports: no psych history - Social History Smoking Status: Never smoker Smokeless Tobacco Status: No Alcohol use: Reports: rarely Drug use: Reports: none Physical Exam - General General appearance: alert, in no apparent distress Course Vital Signs Temperature 98.1 F 03/20/18 08:38 Pulse Rate 109 03/20/18 08:38 Respiratory Rate 28 03/20/18 08:38 Blood Pressure 151/79 03/20/18 08:38 O2 Sat by Pulse Oximetry 96 03/20/18 08:38 Temperature 98.1 F 03/20/18 09:04 Pulse Rate 109 03/20/18 09:04 Respiratory Rate 28 03/20/18 09:04 Blood Pressure 151/79 03/20/18 09:04 O2 Sat by Pulse Oximetry 96 03/20/18 09:04 Oxygen Delivery Oxygen Delivery Room Air Medical Decision Making - Lab Data Result diagrams: 03/20/18 09:21 Lab Results 03/20/18 03/20/18 Range/Units 09:21 09:21 WBC 6.9 (4.3-11.1) K/mcL RBC 5.07 (4.19-5.50) M/mcL Hgb 15.2 (12.9-16.9) g/dL Hct 45.7 (37.5-50.1) % MCV 90.1 (83.0-100.0) fL MCH 30.0 (28.0-33.3) pg MCHC 33.3 (31.6-35.5) g/dL RDW 14.8 H (11.5-14.5) % Plt Count 244 (140-400) K/mcL MPV 10.1 (9.4-12.4) fL Immature Gran % 0.3 (0-4) % Seg Neutrophils % 69.1 % Lymphocytes % 18.5 % Monocytes % 9.3 % Eosinophils % 1.9 % Basophils % 0.9 % Neutrophils # 4.8 (1.6-8.9) K/mcL Lymphocytes # 1.3 (0.6-4.6) K/mcL Monocytes # 0.6 (0.0-1.3) K/mcL Eosinophils # 0.1 (0.0-0.6) K/mcL Basophils # 0.1 (0.0-0.2) K/mcL PT 16.9 H (9.4-12.1) Seconds INR 1.6 APTT 43.5 H (26.0-36.0) Seconds Attestation Statement - Attestation Attestation: I examined this patient and my medical decision-making was reviewed with the Resident Physician. I agree with the documented findings, disposition and treatment plan as described except to the extent set forth below. 72 year old male presentse to the ED with complaints of dyspnea and has a history of afib and follows with [facility] .Jayesh states that he has been more fatigued recently and yesterday he was moving furniature for his aunt who is in a care home for Alzheimers and it was full of cat dander because she owns man cats which have been unattneded since her admission to the care home. Jayesh states that he does not feel like hes wheezing but it he cant take a deep breath. Jayesh denies recent hospitaliszation or surgeries or history of PE/DVTs. He is currently rate controlled although at time he will elevate to 110s. WE will admit to medicine.
[2018-03-20 10:54] LABS: Alanine Aminotransferase 15 Units/L (7-52); Albumin 4.2 g/dL (3.5-5.7); Albumin/Globulin Ratio 1.4 (1.1-2.2); Alkaline Phosphatase 80 Units/L (34-104); Aspartate Amino Transferase 15 Units/L (13-39); BUN/Creatinine Ratio 15 (6-26); Bilirubin,Total 0.9 mg/dL (0.3-1.0); Blood Urea Nitrogen 24 mg/dL (8-23); Calcium 9.3 mg/dL (8.6-10.3); Carbon Dioxide 23 mEq/L (23-29); Chloride 106 mEq/L (98-107); Globulin 2.9 g/dL (2.4-3.5); Glucose 104 mg/dL (70-105); Osmolality,Calculated 294 (280-300); Potassium 4.2 mEq/L (3.5-5.1); Sodium 140 mEq/L (136-145); Total Protein 7.1 g/dL (6.4-8.9); eGFR For African Americans 53 (> 60); eGFR For Non-African Americans 44 (> 60)
[2018-03-20 12:26] LABS: Troponin I < 0.03 ng/mL (< 0.04)
[2018-03-20] MEDS ORDERED: Naloxone 0.4 MG/ML INJ IVP PRN (15:11)
[2018-03-20] MEDS ORDERED: Acetaminophen 325 MG TABLET PO PRN (15:11)
[2018-03-20] MEDS ORDERED: Nitroglycerin 0.4 MG TAB.SUBL SL PRN (15:18)
[2018-03-20] MEDS: *HR* Rivaroxaban 10 MG TABLET PO SCH (16:07)
--- NOTE | 2018-03-20 16:34 | Internal Med History&Physical ---
<InnaRyan Mane - Last Filed: 03/20/18 23:22> Date of Encounter: 03/20/18 Time of Encounter: 14:30 Internal Medicine - H&P: HPI Chief complaint: SOB/Chest pressure/Palpitations Admitted From: Emergency Dept Plans for Post Hospital Care: Home History of present illness: Mr. Sarkar is a 72 year old male w/PMH of atrial fibrillation, COPD, CAD, HLD, HTN and previous heart catheterization in January 2013 w/o stent placement presents from the ED w/CC of heart palpitations, SOB, and chest pressure that pt. reports begins at his left flank and wraps around to the center of his chest for the past week. Reports wearing a Holter monitor on Monday and Monday and turning it in Monday to due to cardiology. Patient states he has felt horrible for approximately the last several weeks. Also reports weakness and fatigue, chest heaviness, and SOB w/exertion. Pt reports hx of atrial fibrillation and previous cardiac ablation which she reports did not work. Reports nausea but denies diaphoresis. Patient denies recent illness, fever, chills, vomiting, changes in vision, headache, unusual bleeding, abdominal pain, diarrhea, constipation, dizziness, lightheadedness, numbness, tingling, pre-syncope, or syncope. Past Med Surg Social Fam HX - Past Medical History Source: patient, old records reviewed Medical history: atrial fibrillation, COPD, coronary artery disease, hyperlipidemia, hypertension Additional medical history: sleep apnea, CKD Psychiatric history: no psych history - Past Surgical History Surgical History: cholecystectomy Additional surgical history: 1 ablation, 3 cardioversions - Social History Smoking Status: Never smoker Smokeless Tobacco Status: No Alcohol use: rarely Drug use: none Current living situation: Home Activity Level: Independent ambulation Recent Out of Country Travel Within the Last 8 Weeks: No Exposure or Possible Exposure to Illness During Travel: No - Family History Mother Race: Family Member Ethnicity: Non- Living Status: Age at : 82 Cause of : Lung cancer Hx Family Cardiac Disorders: Yes ([place]) Hx Family Cancer: Yes (Lung) Hx Family Musculoskeletal Disorders: Yes (RA) Hx Family Neuromuscular Disorders: Yes (RA) Hx Family Neurologic Disorders: Yes (Epilepsy) Father Race: Family Member Ethnicity: Non- Living Status: Age at : 78 Cause of : [place] Hx Family Cardiac Disorders: Yes ([place] x2) Sister Race: Family Member Ethnicity: Non- Living Status: Still Living Hx Family Neurologic Disorders: Yes (Alzheimer's disease) Internal Medicine - H&P: Meds Atorvastatin [Lipitor] 10 mg PO HS 02/20/17 [History] Rivaroxaban [Xarelto] 10 mg PO 1700 02/20/17 [History] Clopidogrel [Plavix] 75 mg PO DAILY 07/12/17 [History] Amiodarone [Cordarone] 200 mg PO BID #60 tablet 07/15/17 [Rx] amLODIPine [Norvasc] 5 mg PO DAILY #30 tablet 12/13/17 [Rx] 3 Allergy/AdvReac Type Severity Reaction Status Date / Time Poison Jie Extract Allergy Rash Verified 03/20/18 11:34 sedation AdvReac Nausea Uncoded 03/20/18 11:34 All Systems PM: A 10-system review of systems was performed and is negative for pertinent findings except as documented above in the HPI. - Constitutional Constitutional: as per HPI, fatigue, weakness, no chills, no fever(s), no night sweats - EENT Eyes: no change in vision, no discharge, no pain, no photophobia Ears: no ear discharge, no ear pain, no tinnitus Nose, mouth and throat: no dysphagia, no nasal discharge, no neck pain, no sore throat - Breasts Breasts: as per HPI - Cardiovascular Cardiovascular ROS IM: as per HPI, chest pain (Pressure), dyspnea, dyspnea on exertion, irregular heart rhythm (Hx of atrial fibrillation), palpitations, no diaphoresis, no lightheadedness, no syncope - Respiratory Respiratory: as per HPI, dyspnea, dyspnea on exertion, no cough, no wheezing, no excessive phlegm production - Gastrointestinal Gastrointestinal: as per HPI, nausea, no abdominal pain, no diarrhea, no hematemesis, no hematochezia, no melena, no vomiting - Genitourinary Genitourinary ROS male: as per HPI - Musculoskeletal Musculoskeletal ROS IM: no numbness, no tingling - Integumentary Integumentary IM: no rash, no unusual bruising - Neurological Neurological ROS: no confusion, no convulsions, no focal weakness, no numbness, no tingling, no tremor(s) - Psychiatric Psychiatric: as per HPI - Endocrine Endocrine IM: as per HPI - Hematologic/Lymphatic Hematologic/Lymphatic: no easy bruising - Allergic/Immunologic Allergic/Immunologic: as per HPI - Constitutional Vitals: Temp Pulse Resp BP Pulse Ox 98.2 F 99 18 164/87 96 03/20/18 14:27 03/20/18 14:27 03/20/18 14:27 03/20/18 14:27 03/20/18 14:27 General appearance: Present: cooperative, mild distress, A&O X 3, morbidly obese , pleasant, answers questions appropriately - Head Head exam: Present: atraumatic, normocephalic - Eye Eye exam: Present: PERRL, conjuntiva pink, sclera anicteric Pupils: Present: PERRL - ENT ENT exam: Present: normal exam - Neck Neck exam general surgery: Present: supple, trachea midline. Absent: lymphadenopathy - Respiratory Respiratory exam: Present: CTAB, wheezes (LLL). Absent: accessory muscle use, rales, rhonchi - Cardiovascular Cardiovascular exam: Present: irregular rhythm (Atrial fibrillation). Absent: diastolic murmur, gallop, rubs, systolic murmur - GI/Abdominal GI/Abdominal exam: Present: normal bowel sounds, soft, no peritoneal signs. Absent: distended, tenderness - Rectal Rectal exam: Present: deferred - Additional comments: exam deferred. - Extremities Exam Extremities exam: Present: warm, radial pulses palpable and symmetrical. Absent : calf tenderness, cyanotic, pedal edema - Back Exam Back exam: Present: normal inspection - Neurological Exam Neurological exam: Present: CN II-XII intact, oriented X3, no focal deficits. Absent: pronater drift, facial droop, speech deficit - Psychiatric Psychiatric exam: Present: normal affect, normal mood - Skin Skin exam: Present: dry, intact Internal Med - H&P Results - Labs CBC & Chem 7: 03/20/18 09:21 03/20/18 10:23 - Diagnostic Studies Chest x-ray Additional comments: Impressions Chest X-Ray 03/20/18 09:04 IMPRESSION: Stable exam with no new acute cardiopulmonary findings. D/ / Mariela Barajas MD / Mariela Barajas MD Interpreting Provider: Mariela Barajas MD - Assessment and plan (1) Chest pressure Current Visit: Yes Status: Acute Assessment and plan: Acute chest pressure accompanied by palpitations and SOB. Pt. reports feeling weak for the past month. Nausea w/o diaphoresis. States pain begins in back and wraps around left side to central chest. Reports wearing Holter monitor Monday and Monday and turning it into [facility] on Monday. Hx of heart catheterization in January 2013 w/o stent placement. Initial troponin <0.03. Will trend. Continuous cardiac telemetry. Echocardiogram. NPO at midnight for a.m. nuclear pharm stress test. Retroperitoneal US ordered to r/o renal calculi. D- dimer ordered to r/o PE. BNP ordered to r/o CHF. Will consider adding Cardiology consult if troponins, echocardiogram, and/or stress test results are abnormal. Pt. is high risk for cardiac event based on current sx, familial hx of MIs; and current risk factors of atrial fibrillation, CAD, HLD, HTN, and morbid obesity. Pt. discussed w/Dr. Adamson who agrees w.plan of care. Observation. (2) SOB (shortness of breath) Current Visit: Yes Status: Acute Assessment and plan: Acute SOB accompanying chest pressure and palpitations. Supplemental O2 w/ titration and SpO2 monitoring. Concern for possible PE so D-dimer ordered. BNP ordered to assess for CHF. Echocardiogram ordered. DuoNebs Q6HR PRN. (3) Weakness Current Visit: Yes Status: Acute Assessment and plan: Acute weakness and fatigue for the past month. Pt. reports SOB w/exertion as well. Falls/safety precautions, up with assist, bed rest w/bathroom privileges w /assist only. BNP ordered to r/o CHF. Echocardiogram. (4) COPD (chronic obstructive pulmonary disease) Current Visit: Yes Status: Chronic Assessment and plan: Hx of chronic COPD. Stable. Pt. has some LLL wheezes on auscultation. DuoNebs Q6HR PRN ordered. Supplemental O2 with titration and SPO2 monitoring. Qualifiers: COPD type: unspecified COPD Qualified Code(s): J44.9 - Chronic obstructive pulmonary disease, unspecified (5) HLD (hyperlipidemia) Current Visit: Yes Status: Chronic Assessment and plan: Hx of chronic HLD. Lipid panel in a.m. labs. Continue pts. Lipitor. Qualifiers: Hyperlipidemia type: pure hypercholesterolemia Qualified Code(s): E78.00 - Pure hypercholesterolemia, unspecified; E78.0 - Pure hypercholesterolemia (6) HTN (hypertension) Current Visit: Yes Status: Chronic Assessment and plan: Hx of chronic HTN. Monitor pt. and VS. Continue pts. Norvasc. Qualifiers: Hypertension type: essential hypertension Qualified Code(s): I10 - Essential (primary) hypertension (7) Atrial fibrillation Current Visit: Yes Status: Chronic Assessment and plan: Hx of chronic atrial fibrillation. Pt. reports prior ablation but states it didn 't work. Will continue pts. Xarelto, Plavix, and Amiodarone. Continuous cardiac telemetry. Qualifiers: Atrial fibrillation type: paroxysmal Qualified Code(s): I48.0 - Paroxysmal atrial fibrillation (8) CAD (coronary artery disease) Current Visit: Yes Status: Chronic Assessment and plan: Hx of chronic CAD w/heart catheterization in January 2013 w/o stent placement. Continue pts. HTN and HLD medications. Continuous cardiac telemetry. Echocardiogram ordered for current chest pressure. Qualifiers: Coronary Disease-Associated Artery/Lesion type: [place] artery [place] vs. transplanted heart: [place] heart Associated angina: without angina Qualified Code(s): I25.10 - Atherosclerotic heart disease of [place] coronary artery without angina pectoris (9) DVT prophylaxis Current Visit: Yes Status: Acute Assessment and plan: Continue pts. Xarelto for DVT prophylaxis. Monitor pt. for signs of bleeding. - Time Spent With Patient Total time spent is greater than 50% in coordination of care (as documented) at patient's floor/unit and/or counseling patient: Greater than 35 minutes <Candido Adamson - Last Filed: 03/21/18 19:34> Date of Encounter: 03/21/18 Internal Medicine - H&P: HPI History of present illness: Mr. Sarkar is a 72 year old male All Systems PM: A 10-system review of systems was performed and is negative for pertinent findings except as documented above in the HPI. - Constitutional Vitals: Temp Pulse Resp BP Pulse Ox 98.6 F 82 17 149/77 96 03/21/18 18:58 03/21/18 18:58 03/21/18 18:58 03/21/18 18:58 03/21/18 18:58 Internal Med - H&P Results - Labs CBC & Chem 7: 03/21/18 04:09 03/21/18 04:09 Labs: Short CBC 03/21/18 Range/Units 04:09 WBC 7.0 (4.3-11.1) K/mcL Hgb 14.3 (12.9-16.9) g/dL Hct 43.9 (37.5-50.1) % Plt Count 254 (140-400) K/mcL Neutrophils # 4.6 (1.6-8.9) K/mcL BMP 03/21/18 04:09 Sodium 141 Potassium 4.0 Chloride 106 Carbon Dioxide 26 BUN 26 H Creatinine 1.58 H Glucose 103 Calcium 9.3 Cardiac Enzymes 03/20/18 Range/Units 22:33 Troponin I < 0.03 (< 0.04) ng/mL Liver Function 03/21/18 Range/Units 04:09 Total Bilirubin 1.0 (0.3-1.0) mg/dL AST 15 (13-39) Units/L ALT 15 (7-52) Units/L Alkaline Phosphatase 79 (34-104) Units/L Albumin 4.2 (3.5-5.7) g/dL - Impressions ITS Impressions Echocardiogram 03/20/18 15:15 Impressions: LVEF 50%. Overall, LVEF appears low normal. Mildly dilated left ventricle. Indeterminate diastolic function. Right ventricle was not well visualized. Grossly, it appears mildly dilated with normal function. No evidence of pulmonary hypertension identified. RVSP not well obtained and could be underestimated. No significant valvular dysfunction. Findings: Study Quality * Technically sub-optimal due to body habitus. ECG Findings * Atrial fibrillation. Left Ventricle * LVEF 50%. Overall, LVEF appears low normal. * Mildly dilated left ventricle. * Indeterminate diastolic function. Right Ventricle * Right ventricle was not well visualized. Grossly, it appears mildly dilated with normal function. Left Atrium * Grossly, severely dilated left atrium. Right Atrium * Grossly, moderately dilated right atrium. Aortic Valve * Aortic valve not well visualized. * No aortic stenosis. * No aortic regurgitation. Mitral Valve * No mitral stenosis. * No mitral regurgitation. * Normal mitral valve structure and function. Tricuspid Valve * Normal tricuspid valve structure and function. * Trace tricuspid regurgitation. * No evidence of pulmonary hypertension identified. RVSP not well obtained and could be underestimated. Pulmonic Valve * Pulmonic valve is not well visualized. * No pulmonic regurgitation. Aorta * Normally sized aortic root. Pericardium * The pericardium appears normal. IVC * Normal IVC dimensions and inspiratory collapse. Pulmonary Artery * Normal visualized portions of the main pulmonary artery. Retroperitoneum Ultrasound 03/20/18 15:23 IMPRESSION: Unremarkable ultrasound of the kidneys. D/ / Shanique Roberto MD / Shanique Roberto MD Interpreting Provider: Shanique Roberto MD - Attending Attestation Discussed with SMITA and agree with assessment and plan as above Will rule out ACS by trending cardiac biomarkers - Assessment and plan (1) CAD (coronary artery disease) Current Visit: Yes Status: Chronic Qualifiers: Coronary Disease-Associated Artery/Lesion type: [place] artery [place] vs. transplanted heart: [place] heart Associated angina: without angina Qualified Code(s): I25.10 - Atherosclerotic heart disease of [place] coronary artery without angina pectoris (2) Atrial fibrillation Current Visit: Yes Status: Chronic Qualifiers: Atrial fibrillation type: paroxysmal Qualified Code(s): I48.0 - Paroxysmal atrial fibrillation (3) Chest pressure Current Visit: Yes Status: Acute (4) DVT prophylaxis Current Visit: Yes Status: Acute (5) COPD (chronic obstructive pulmonary disease) Current Visit: Yes Status: Chronic Qualifiers: COPD type: unspecified COPD Qualified Code(s): J44.9 - Chronic obstructive pulmonary disease, unspecified (6) HLD (hyperlipidemia) Current Visit: Yes Status: Chronic Qualifiers: Hyperlipidemia type: pure hypercholesterolemia Qualified Code(s): E78.00 - Pure hypercholesterolemia, unspecified; E78.0 - Pure hypercholesterolemia (7) HTN (hypertension) Current Visit: Yes Status: Chronic Qualifiers: Hypertension type: essential hypertension Qualified Code(s): I10 - Essential (primary) hypertension (8) SOB (shortness of breath) Current Visit: Yes Status: Acute (9) Weakness Current Visit: Yes Status: Acute - Time Spent With Patient Total time spent is greater than 50% in coordination of care (as documented) at patient's floor/unit and/or counseling patient:
[2018-03-20] MEDS ORDERED: Ipratropium/Albuterol Neb 3 ML IH PRN (16:35)
[2018-03-20] MEDS ORDERED: Perflutren Lipid Microsphere 1.3 ML in 0.9 % Sodium Chloride 8.7 ML IVP ONE (19:54)
[2018-03-20] MEDS: *HR* Amiodarone 200 MG TABLET PO SCH (20:48)
[2018-03-21 05:08] LABS: Basophils # 0.1 K/mcL (0.0-0.2); Basophils % 0.9 %; Eosinophils # 0.1 K/mcL (0.0-0.6); Eosinophils % 1.8 %; Hematocrit 43.9 % (37.5-50.1); Hemoglobin 14.3 g/dL (12.9-16.9); Immature Granulocytes % 0.1 % (0-4); Immature Platelets 3.3 % (1.1-6.1); Lymphocytes # 1.5 K/mcL (0.6-4.6); Lymphocytes % 20.7 %; Mean Corpuscular HGB Conc 32.6 g/dL (31.6-35.5); Mean Corpuscular Hemoglobin 29.9 pg (28.0-33.3); Mean Corpuscular Volume 91.6 fL (83.0-100.0); Mean Platelet Volume 10.5 fL (9.4-12.4); Monocytes # 0.8 K/mcL (0.0-1.3); Monocytes % 10.8 %; Neutrophils # 4.6 K/mcL (1.6-8.9); Platelet Count 254 K/mcL (140-400); Red Blood Count 4.79 M/mcL (4.19-5.50); Red Cell Distribution Width 14.9 % (11.5-14.5); Segmented Neutrophils % 65.7 %
[2018-03-21 05:27] LABS: Albumin 4.2 g/dL (3.5-5.7); Albumin/Globulin Ratio 1.4 (1.1-2.2); Calcium 9.3 mg/dL (8.6-10.3); Chol/HDL Ratio 3.2 (0-4.9); Globulin 2.9 g/dL (2.4-3.5); Magnesium 2.1 mg/dL (1.6-2.6); Total Protein 7.1 g/dL (6.4-8.9)
[2018-03-21] MEDS ORDERED: Regadenoson 0.4 MG/5 ML SYRINGE IVP ONE (05:43)
--- NOTE | 2018-03-21 07:27 | Internal Med Progress Note ---
Date of Encounter: 03/21/18 Time of Encounter: 20:00 - Assessment and plan (1) Chest pressure Current Visit: Yes Status: Acute Assessment and plan: Acute chest pressure accompanied by palpitations and SOB with risk factors for CAD. Troponins WNL. F/U 2D echo and stress test (2) CAD (coronary artery disease) Current Visit: Yes Status: Chronic Assessment and plan: Hx of chronic CAD w/heart catheterization in January 2013 w/o stent placement. Continue pts. HTN and HLD medications. Continuous cardiac telemetry. Echocardiogram ordered for current chest pressure. Qualifiers: Coronary Disease-Associated Artery/Lesion type: [place] artery [place] vs. transplanted heart: [place] heart Associated angina: without angina Qualified Code(s): I25.10 - Atherosclerotic heart disease of [place] coronary artery without angina pectoris (3) Atrial fibrillation Current Visit: Yes Status: Chronic Assessment and plan: Hx of chronic atrial fibrillation. Pt. reports prior ablation but states it didn 't work. Will continue pts. Xarelto, Plavix, and Amiodarone. Continuous cardiac telemetry. Qualifiers: Atrial fibrillation type: paroxysmal Qualified Code(s): I48.0 - Paroxysmal atrial fibrillation (4) DVT prophylaxis Current Visit: Yes Status: Acute Assessment and plan: Continue pts. Xarelto for DVT prophylaxis. Monitor pt. for signs of bleeding. (5) COPD (chronic obstructive pulmonary disease) Current Visit: Yes Status: Chronic Assessment and plan: Hx of chronic COPD. Stable. Pt. has some LLL wheezes on auscultation. DuoNebs Q6HR PRN ordered. Supplemental O2 with titration and SPO2 monitoring. Qualifiers: COPD type: unspecified COPD Qualified Code(s): J44.9 - Chronic obstructive pulmonary disease, unspecified (6) HLD (hyperlipidemia) Current Visit: Yes Status: Chronic Assessment and plan: Hx of chronic HLD. Lipid panel in a.m. labs. Continue pts. Lipitor. Qualifiers: Hyperlipidemia type: pure hypercholesterolemia Qualified Code(s): E78.00 - Pure hypercholesterolemia, unspecified; E78.0 - Pure hypercholesterolemia (7) HTN (hypertension) Current Visit: Yes Status: Chronic Assessment and plan: Hx of chronic HTN. Monitor pt. and VS. Continue pts. Norvasc. Qualifiers: Hypertension type: essential hypertension Qualified Code(s): I10 - Essential (primary) hypertension (8) SOB (shortness of breath) Current Visit: Yes Status: Acute Assessment and plan: Acute SOB accompanying chest pressure and palpitations. Supplemental O2 w/ titration and SpO2 monitoring. Concern for possible PE so D-dimer ordered. BNP ordered to assess for CHF. Echocardiogram ordered. DuoNebs Q6HR PRN. (9) Weakness Current Visit: Yes Status: Acute Assessment and plan: Acute weakness and fatigue for the past month. Pt. reports SOB w/exertion as well. Falls/safety precautions, up with assist, bed rest w/bathroom privileges w /assist only. BNP ordered to r/o CHF. Echocardiogram. - Time Spent With Patient Total time spent is greater than 50% in coordination of care (as documented) at patient's floor/unit and/or counseling patient: - Subjective Interval history: No acute events overnight - Constitutional Vitals: Temp Pulse Resp BP Pulse Ox 97.8 F 79 16 135/76 96 03/21/18 03:33 03/21/18 03:33 03/21/18 03:33 03/21/18 03:33 03/21/18 03:33 General appearance: Present: cooperative, mild distress, A&O X 3, morbidly obese , pleasant, answers questions appropriately Exam: Morbidly obese gentleman - Head Head exam: Present: atraumatic, normocephalic - Eye Eye exam: Present: PERRL, conjuntiva pink, sclera anicteric Pupils: Present: PERRL - Neck Neck exam general surgery: Present: supple, trachea midline. Absent: lymphadenopathy - Respiratory Respiratory exam: Present: CTAB. Absent: accessory muscle use, rales, rhonchi, wheezes - Cardiovascular Cardiovascular exam: Present: RRR, +S1, +S2. Absent: diastolic murmur, gallop, rubs, systolic murmur Additional comments: Irregularly irregular - GI/Abdominal GI/Abdominal exam: Present: normal bowel sounds, soft, no peritoneal signs. Absent: distended, tenderness - Extremities Exam Extremities exam: Present: warm, radial pulses palpable and symmetrical. Absent : calf tenderness, cyanotic, pedal edema - Neurological Exam Neurological exam: Present: CN II-XII intact, oriented X3, no focal deficits. Absent: pronater drift, facial droop, speech deficit - Skin Skin exam: Present: dry, intact Internal Medicine: Result - Labs CBC & Chem 7: 03/21/18 04:09 03/21/18 04:09 Labs: Short CBC 03/21/18 Range/Units 04:09 WBC 7.0 (4.3-11.1) K/mcL Hgb 14.3 (12.9-16.9) g/dL Hct 43.9 (37.5-50.1) % Plt Count 254 (140-400) K/mcL Neutrophils # 4.6 (1.6-8.9) K/mcL BMP 03/21/18 04:09 Sodium 141 Potassium 4.0 Chloride 106 Carbon Dioxide 26 BUN 26 H Creatinine 1.58 H Glucose 103 Calcium 9.3 Cardiac Enzymes 03/20/18 03/20/18 Range/Units 16:26 22:33 Troponin I < 0.03 < 0.03 (< 0.04) ng/mL Liver Function 03/21/18 Range/Units 04:09 Total Bilirubin 1.0 (0.3-1.0) mg/dL AST 15 (13-39) Units/L ALT 15 (7-52) Units/L Alkaline Phosphatase 79 (34-104) Units/L Albumin 4.2 (3.5-5.7) g/dL - ABG Interpretation ABG results: PT/INR, D-dimer PT 16.9 Seconds (9.4-12.1) H 03/20/18 09:21 D-Dimer 235 ng/mLFEU (0-500) 03/20/18 16:26 - Impressions Impressions Retroperitoneum Ultrasound 03/20/18 15:23 IMPRESSION: Unremarkable ultrasound of the kidneys. D/ / Shanique Roberto MD / Shanique Roberto MD Interpreting Provider: Shanique Roberto MD Consult Discharge Plan - Plan Referrals: Gary Clifton DO [Primary Care Provider] -
[2018-03-21 08:40] LABS: Estimated Average Glucose 114 mg/dl; Hemoglobin A1C 5.6 %
[2018-03-21] MEDS: *HR* Amiodarone 200 MG TABLET PO SCH ×2 (09:35→20:26)
[2018-03-21] MEDS: amLODIPine 5 MG TABLET PO SCH (09:35)
--- NOTE | 2018-03-21 12:31 | Electrocardiograph Report ---
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
--- NOTE | 2018-03-21 14:51 | Electrocardiograph Report ---
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
[2018-03-21] MEDS: *HR* Rivaroxaban 10 MG TABLET PO SCH (16:44)
[2018-03-22 06:29] LABS: Basophils % 0.7 %; Eosinophils # 0.2 K/mcL (0.0-0.6); Eosinophils % 2.6 %; Hematocrit 41.1 % (37.5-50.1); Immature Granulocytes % 0.3 % (0-4); Lymphocytes # 0.9 K/mcL (0.6-4.6); Lymphocytes % 15.6 %; Mean Corpuscular HGB Conc 31.9 g/dL (31.6-35.5); Mean Corpuscular Hemoglobin 29.2 pg (28.0-33.3); Mean Corpuscular Volume 91.5 fL (83.0-100.0); Mean Platelet Volume 10.1 fL (9.4-12.4); Monocytes # 0.6 K/mcL (0.0-1.3); Monocytes % 9.9 %; Neutrophils # 4.1 K/mcL (1.6-8.9); Platelet Count 221 K/mcL (140-400); Red Blood Count 4.49 M/mcL (4.19-5.50); Red Cell Distribution Width 14.7 % (11.5-14.5); Segmented Neutrophils % 70.9 %
[2018-03-22 06:30] LABS: Hemoglobin 13.1 g/dL (12.9-16.9)
[2018-03-22 06:43] LABS: Albumin 3.8 g/dL (3.5-5.7); Albumin/Globulin Ratio 1.5 (1.1-2.2); Bilirubin,Total 0.9 mg/dL (0.3-1.0); Globulin 2.5 g/dL (2.4-3.5); Potassium 3.9 mEq/L (3.5-5.1); Total Protein 6.3 g/dL (6.4-8.9)
--- NOTE | 2018-03-22 07:25 | Internal Med Progress Note ---
Date of Encounter: 03/22/18 Time of Encounter: 07:20 - Assessment and plan (1) Chest pressure Status: Acute Assessment and plan: Acute chest pressure accompanied by palpitations and SOB with risk factors for CAD. Troponins WNL. F/U 2D echo and stress test. To complete 2nd part of 2 day stress test today. Echo showed EF of 50% (2) CAD (coronary artery disease) Status: Chronic Assessment and plan: Hx of chronic CAD w/heart catheterization in January 2013 w/o stent placement. Continue pts. HTN and HLD medications. Continuous cardiac telemetry. Echocardiogram ordered for current chest pressure. Qualifiers: Coronary Disease-Associated Artery/Lesion type: [place] artery [place] vs. transplanted heart: [place] heart Associated angina: without angina Qualified Code(s): I25.10 - Atherosclerotic heart disease of [place] coronary artery without angina pectoris (3) Atrial fibrillation Status: Chronic Assessment and plan: Hx of chronic atrial fibrillation. Pt. reports prior ablation but states it didn 't work. Will continue pts. Xarelto, Plavix, and Amiodarone. Continuous cardiac telemetry. Qualifiers: Atrial fibrillation type: paroxysmal Qualified Code(s): I48.0 - Paroxysmal atrial fibrillation (4) DVT prophylaxis Status: Acute Assessment and plan: Continue pts. Xarelto for DVT prophylaxis. Monitor pt. for signs of bleeding. (5) COPD (chronic obstructive pulmonary disease) Status: Chronic Assessment and plan: Hx of chronic COPD. Stable. Pt. has some LLL wheezes on auscultation. DuoNebs Q6HR PRN ordered. Supplemental O2 with titration and SPO2 monitoring. Qualifiers: COPD type: unspecified COPD Qualified Code(s): J44.9 - Chronic obstructive pulmonary disease, unspecified (6) HLD (hyperlipidemia) Status: Chronic Assessment and plan: Hx of chronic HLD. Lipid panel in a.m. labs. Continue pts. Lipitor. Qualifiers: Hyperlipidemia type: pure hypercholesterolemia Qualified Code(s): E78.00 - Pure hypercholesterolemia, unspecified; E78.0 - Pure hypercholesterolemia (7) HTN (hypertension) Status: Chronic Assessment and plan: Hx of chronic HTN. Monitor pt. and VS. Continue pts. Norvasc. Qualifiers: Hypertension type: essential hypertension Qualified Code(s): I10 - Essential (primary) hypertension (8) SOB (shortness of breath) Status: Acute Assessment and plan: Acute SOB accompanying chest pressure and palpitations. Supplemental O2 w/ titration and SpO2 monitoring. Concern for possible PE so D-dimer ordered. BNP ordered to assess for CHF. Echocardiogram ordered. DuoNebs Q6HR PRN. (9) Weakness Status: Acute Assessment and plan: Acute weakness and fatigue for the past month. Pt. reports SOB w/exertion as well. Falls/safety precautions, up with assist, bed rest w/bathroom privileges w /assist only. BNP ordered to r/o CHF. Echocardiogram. - Time Spent With Patient Total time spent is greater than 50% in coordination of care (as documented) at patient's floor/unit and/or counseling patient: - Subjective Interval history: No acute events overnight - Constitutional Vitals: Temp Pulse Resp BP Pulse Ox 98.5 F 84 18 130/82 97 03/22/18 03:29 03/22/18 03:29 03/22/18 03:29 03/22/18 03:29 03/22/18 03:29 General appearance: Present: cooperative, mild distress, A&O X 3, morbidly obese , pleasant, answers questions appropriately Exam: Obese gentleman - Head Head exam: Present: atraumatic, normocephalic - Eye Eye exam: Present: PERRL, conjuntiva pink, sclera anicteric Pupils: Present: PERRL - Neck Neck exam general surgery: Present: supple, trachea midline. Absent: lymphadenopathy - Respiratory Respiratory exam: Present: CTAB. Absent: accessory muscle use, rales, rhonchi, wheezes - Cardiovascular Cardiovascular exam: Present: RRR, +S1, +S2. Absent: diastolic murmur, gallop, rubs, systolic murmur - GI/Abdominal GI/Abdominal exam: Present: normal bowel sounds, soft, no peritoneal signs. Absent: distended, tenderness - Extremities Exam Extremities exam: Present: warm, radial pulses palpable and symmetrical. Absent : calf tenderness, cyanotic, pedal edema - Neurological Exam Neurological exam: Present: CN II-XII intact, oriented X3, no focal deficits. Absent: pronater drift, facial droop, speech deficit - Skin Skin exam: Present: dry, intact Internal Medicine: Result - Labs CBC & Chem 7: 03/22/18 05:35 03/22/18 05:35 Labs: Short CBC 03/22/18 Range/Units 05:35 WBC 5.8 (4.3-11.1) K/mcL Hgb 13.1 (12.9-16.9) g/dL Hct 41.1 (37.5-50.1) % Plt Count 221 (140-400) K/mcL Neutrophils # 4.1 (1.6-8.9) K/mcL BMP 03/22/18 05:35 Sodium 140 Potassium 3.9 Chloride 108 H Carbon Dioxide 27 BUN 23 Creatinine 1.54 H Glucose 100 Calcium 9.0 Liver Function 03/22/18 Range/Units 05:35 Total Bilirubin 0.9 (0.3-1.0) mg/dL AST 14 (13-39) Units/L ALT 13 (7-52) Units/L Alkaline Phosphatase 77 (34-104) Units/L Albumin 3.8 (3.5-5.7) g/dL - ABG Interpretation ABG results: PT/INR, D-dimer PT 16.9 Seconds (9.4-12.1) H 03/20/18 09:21 D-Dimer 235 ng/mLFEU (0-500) 03/20/18 16:26 - Impressions Impressions Echocardiogram 03/20/18 15:15 Impressions: LVEF 50%. Overall, LVEF appears low normal. Mildly dilated left ventricle. Indeterminate diastolic function. Right ventricle was not well visualized. Grossly, it appears mildly dilated with normal function. No evidence of pulmonary hypertension identified. RVSP not well obtained and could be underestimated. No significant valvular dysfunction. Findings: Study Quality * Technically sub-optimal due to body habitus. ECG Findings * Atrial fibrillation. Left Ventricle * LVEF 50%. Overall, LVEF appears low normal. * Mildly dilated left ventricle. * Indeterminate diastolic function. Right Ventricle * Right ventricle was not well visualized. Grossly, it appears mildly dilated with normal function. Left Atrium * Grossly, severely dilated left atrium. Right Atrium * Grossly, moderately dilated right atrium. Aortic Valve * Aortic valve not well visualized. * No aortic stenosis. * No aortic regurgitation. Mitral Valve * No mitral stenosis. * No mitral regurgitation. * Normal mitral valve structure and function. Tricuspid Valve * Normal tricuspid valve structure and function. * Trace tricuspid regurgitation. * No evidence of pulmonary hypertension identified. RVSP not well obtained and could be underestimated. Pulmonic Valve * Pulmonic valve is not well visualized. * No pulmonic regurgitation. Aorta * Normally sized aortic root. Pericardium * The pericardium appears normal. IVC * Normal IVC dimensions and inspiratory collapse. Pulmonary Artery * Normal visualized portions of the main pulmonary artery. Consult Discharge Plan - Plan Referrals: Gary Clifton DO [Primary Care Provider] - 03/28/18 9:30 am Prescriptions: Clopidogrel [Plavix] 75 mg PO DAILY #60 tablet
[2018-03-22] MEDS: amLODIPine 5 MG TABLET PO SCH (09:32)
[2018-03-22] MEDS: *HR* Amiodarone 200 MG TABLET PO SCH (09:32)
[2018-03-22 10:18] VITALS: BP 126/77
--- NOTE | 2018-03-22 10:47 | Discharge Summary ---
Orders not resulted at time of discharge: Pending orders 03/21/18 07:00 NM riri perf SPECT multi [NM] Routine 03/23/18 04:00 Complete Blood Count [HEME] AM 0400 Comprehensive Metabolic Panel AM 0400 Date of Encounter: 03/22/18 Time of Encounter: 10:45 - Discharge Diagnosis (1) Chest pressure Priority: Primary Status: Acute Assessment and Plan: 72 year old male w/PMH of atrial fibrillation, COPD, CAD, HLD, HTN and previous heart catheterization in January 2013 w/o stent placement presents from the ED w/CC of heart palpitations, SOB, and chest pressure that pt. Reports begins at his left flank and wraps around to the center of his chest for the past week. Reports acute chest pressure accompanied by palpitations and SOB with risk factors for CAD. He had troponins WNL. Based on his risk factors for CAD, he had a 2D echo and pharmacologic stress test done. Echo came back with an EF of 50% with no wall motion abnormalities and 2 days stress test was negative for ischemia. He was therefore discharged in a stable condition (2) CAD (coronary artery disease) Priority: Secondary Status: Chronic Qualifiers: Coronary Disease-Associated Artery/Lesion type: [place] artery [place] vs. transplanted heart: [place] heart Associated angina: without angina Qualified Code(s): I25.10 - Atherosclerotic heart disease of [place] coronary artery without angina pectoris (3) Atrial fibrillation Priority: Secondary Status: Chronic Qualifiers: Atrial fibrillation type: paroxysmal Qualified Code(s): I48.0 - Paroxysmal atrial fibrillation (4) DVT prophylaxis Priority: Secondary Status: Acute (5) COPD (chronic obstructive pulmonary disease) Priority: Secondary Status: Chronic Qualifiers: COPD type: unspecified COPD Qualified Code(s): J44.9 - Chronic obstructive pulmonary disease, unspecified (6) HLD (hyperlipidemia) Priority: Secondary Status: Chronic Qualifiers: Hyperlipidemia type: pure hypercholesterolemia Qualified Code(s): E78.00 - Pure hypercholesterolemia, unspecified; E78.0 - Pure hypercholesterolemia (7) HTN (hypertension) Priority: Secondary Status: Chronic Qualifiers: Hypertension type: essential hypertension Qualified Code(s): I10 - Essential (primary) hypertension (8) SOB (shortness of breath) Priority: Secondary Status: Acute (9) Weakness Priority: Secondary Status: Acute Hospital course: Mr. Sarkar is a 72 year old male - Time Spent with Patient Total time spent providing and/or coordinating discharge services: - Discharge Medications Prescriptions: Clopidogrel [Plavix] 75 mg PO DAILY #60 tablet Home Medications: Atorvastatin [Lipitor] 10 mg PO HS 02/20/17 [History] Rivaroxaban [Xarelto] 10 mg PO 1700 02/20/17 [History] Amiodarone [Cordarone] 200 mg PO BID #60 tablet 07/15/17 [Rx] amLODIPine [Norvasc] 5 mg PO DAILY #30 tablet 12/13/17 [Rx] Clopidogrel [Plavix] 75 mg PO DAILY #60 tablet 03/22/18 [Rx] Allergies/Adverse Reactions: 3 Allergy/AdvReac Type Severity Reaction Status Date / Time Poison Jie Extract Allergy Rash Verified 03/20/18 11:34 sedation AdvReac Nausea Uncoded 03/20/18 11:34 Date of admission: 03/20/18 14:00 Primary care physician: Gary Clifton, Consults: 03/20/18 15:13 Consult to Dental Hygienist [CONS] Routine Reason for SW Consult: Please assess patient for possible home needs for post -discharge planning. - Constitutional Vitals: Temp Pulse Resp BP Pulse Ox 98.2 F 85 18 126/77 96 03/22/18 10:13 03/22/18 10:13 03/22/18 10:13 03/22/18 10:13 03/22/18 10:13 General appearance: Present: cooperative, mild distress, A&O X 3, morbidly obese , pleasant, answers questions appropriately - Head Head exam: Present: atraumatic, normocephalic - Eye Eye exam: Present: PERRL, conjuntiva pink, sclera anicteric Pupils: Present: PERRL - Neck Neck exam general surgery: Present: supple, trachea midline. Absent: lymphadenopathy - Respiratory Respiratory exam: Present: CTAB. Absent: accessory muscle use, rales, rhonchi, wheezes - Cardiovascular Cardiovascular exam: Present: RRR, +S1, +S2. Absent: diastolic murmur, gallop, rubs, systolic murmur - GI/Abdominal GI/Abdominal exam: Present: normal bowel sounds, soft, no peritoneal signs. Absent: distended, tenderness - Extremities Exam Extremities exam: Present: warm, radial pulses palpable and symmetrical. Absent : calf tenderness, cyanotic, pedal edema - Neurological Exam Neurological exam: Present: CN II-XII intact, oriented X3, no focal deficits. Absent: pronater drift, facial droop, speech deficit - Skin Skin exam: Present: dry, intact - Patient Status Disposition: Home, Self-Care Condition: Good - Discharge Instructions Follow Up With: Gary Clifton DO [Primary Care Provider] - 03/28/18 9:30 am
== END 2018-03-22 12:42 | disposition home or self-care (01) ==
LOC: 2ANU 08:34 → EMEROO 08:34 → 2ANU 14:20
PROVIDERS: ADMIT Hospitalist; ATTEND Hospitalist